=== PATIENT | male | born 1945 | race Caucasian/White ===

== ENCOUNTER 2018-03-19 17:17 | Inpatient (IN) | payer MEDICARE, MEDICAID ==
[2018-03-19 17:24] VITALS: BMI 31.0
[2018-03-19 19:40] LABS: BASO # 0.1 K/uL (0.0-0.2); BASO % 0.6 % (0.0-2.0); EOS # 0.4 K/uL (0.0-0.7); EOS % 3.4 % (0.0-4.0); HEMOGLOBIN 14.8 g/dL (12.0-18.0); LYMPH # 1.4 K/uL (1.0-4.3); LYMPH % 12.8 % (20.0-40.0); MEAN CELL VOLUME 80.1 fL (80.0-94.0); MEAN CORPUSCULAR HEMOGLOBIN 26.6 pg (27.0-31.0); MEAN CORPUSCULAR HGB CONC 33.2 g/dL (33.0-37.0); MEAN PLATELET VOLUME 9.5 fL (7.2-11.7); MONO # 0.8 K/uL (0.0-0.8); MONO % 7.1 % (0.0-10.0); NEUT # 8.5 K/uL (1.8-7.0); NEUT % 76.1 % (50.0-75.0); NRBC % 0.2 % (0.0-2.0); RBC 5.55 Mil/uL (4.40-5.90); RED CELL DISTRIBUTION WIDTH 17.1 % (11.5-14.5); WHITE BLOOD COUNT 11.2 K/uL (4.8-10.8)
--- NOTE | 2018-03-19 19:50 | C.PDOC ---
History Of Present Illness 72 y/o male presents to ED for complaints of dysuria and abdominal suprapubic pain associated with bodyaches and generalized weakness. PAtient states he cannot pass urine. Denies any other physical complaints. Time Seen by Provider: 03/19/18 19:27 Chief Complaint (Nursing): Weakness/Neurological Deficit History Per: Patient History/Exam Limitations: no limitations Onset/Duration Of Symptoms: Hrs Current Symptoms Are (Timing): Still Present Associated Symptoms Preceding Syncopal Episode: No Predromal Symptoms (Sudden Onset) Seizure Or Post-ictal Symptoms: None Fall Associated With With Symptoms: No - Symptoms Of CVA Recent Aspirin Use: Unknown Current Coumadin Use?: Unknown Recent Head Trauma: No Past Medical History Reviewed: Historical Data, Nursing Documentation, Vital Signs Vital Signs: Last Vital Signs Temp Pulse 55 L 03/19/18 20:34 Resp 12 03/19/18 20:34 BP 118/72 03/19/18 20:34 Pulse Ox 98 03/19/18 20:34 - Medical History PMH: Atrial Fibrillation, HTN Family History: States: No Known Family Hx - Social History Hx Alcohol Use: No Hx Substance Use: No - Immunization History Hx Tetanus Toxoid Vaccination: No Hx Influenza Vaccination: No Hx Pneumococcal Vaccination: No Review Of Systems Constitutional: Negative for: Fever, Chills Gastrointestinal: Positive for: Abdominal Pain (suprapubic ). Negative for: Nausea, Vomiting, Diarrhea Genitourinary: Positive for: Dysuria Skin: Negative for: Rash Neurological: Negative for: Weakness, Numbness Physical Exam - Physical Exam Appears: Well, Non-toxic, No Acute Distress Skin: Normal Color, Warm, Dry Head: Atraumatic, Normacephalic Eye(s): bilateral: Normal Inspection, PERRL, EOMI Oral Mucosa: Moist Neck: Supple Cardiovascular: Rhythm Regular Respiratory: Normal Breath Sounds, No Decreased Breath Sounds, No Rales, No Rhonchi, No Wheezing Gastrointestinal/Abdominal: Soft, Tenderness (Suprapubic consistent with bladder ), Distention, No Guarding, No Rebound, Other (Obese) Extremity: Normal ROM, No Pedal Edema, Other (Right leg shorter than left leg ) Extremity: Bilateral: Atraumatic, Normal Color And Temperature, Normal ROM Neurological/Psych: Oriented x3, Normal Speech Gait: Steady ED Course And Treatment - Laboratory Results Result Diagrams: 03/19/18 19:37 03/19/18 19:37 Lab Interpretation: Abnormal (+ mild leukocytosis, UA neg, trop neg.) ECG: Interpreted By Me ECG Rhythm: Atrial Fibrillation ECG Interpretation: Abnormal Rate From EC O2 Sat by Pulse Oximetry: 99 (RA) Pulse Ox Interpretation: Abnormal (changed c/w prior Nuclear Stress Test with Dr. Navarro.) - Radiology CXR: Interpreted by Me CXR Interpretation: Yes: No Acute Disease, Cardiomegaly Progress Note: siegel cath, 1700 cc. lovenox 90 mg SQ for new AF. no abx for mild leukocytosis and no source. Reevaluation Time: 21:15 Reassessment Condition: Improved - Physician Consult Information Outcome Of Conversation: 2100: d/w Dr. Hernandez and Medicine john Aldana to admit. Medical Decision Making Medical Decision Making: Administered Toradol. Ordered EKG, blood work, CXR, and urinalysis. Disposition Doctor Will See Patient In The: Hospital Counseled Patient/Family Regarding: Studies Performed, Diagnosis - Disposition Disposition: HOSPITALIZED Disposition Time: 21:15 Condition: GOOD Forms: [employer] (German) - Clinical Impression Clinical Impression: New onset atrial fibrillation, Urinary retention - Scribe Statement The provider has reviewed the documentation as recorded by the Scribe Yahir Malik All medical record entries made by the Scribe were at my direction and personally dictated by me. I have reviewed the chart and agree that the record accurately reflects my personal performance of the history, physical exam, medical decision making, and the department course for this patient. I have also personally directed, reviewed, and agree with the discharge instructions and disposition.
[2018-03-19 20:01] LABS: ALB/GLOB RATIO 1.3 (1.0-2.1); ALBUMIN 4.5 g/dL (3.5-5.0)
[2018-03-19 20:02] LABS: SPERM URINE RARE /hpf; URINE BILIRUBIN NEGATIVE (NEGATIVE); URINE BLOOD NEGATIVE (NEGATIVE); URINE CLARITY Clear (Clear); URINE COLOR Yellow (YELLOW); URINE GLUCOSE (UA) 3+ mg/dL (Normal); URINE LEUKOCYTE ESTERASE NEG Leu/uL (Negative); URINE PROTEIN NEGATIVE (NEGATIVE); URINE UROBILINOGEN NORMAL mg/dL (0.2-1.0)
[2018-03-19 20:16] LABS: TROPONIN I 0.041 ng/mL (0.00-0.120)
[2018-03-19] MEDS ORDERED: Enoxaparin 40 mg Syringe SC STA (21:11)
--- NOTE | 2018-03-19 21:13 | CP.PCM.HP ---
History of Present Illness - History of Present Illness History of Present Illness: Medicine Note for Dr. Hernandez's Service CC: Can't urinate, lower abdominal pain HPI: This is a 72 year old male with PMHx of Hypertension, Insulin Dependent Type 2 DM, Atrial Fibrillation on AC, and Hypothyroidism, who is presenting with lower abdominal pain and urinary retention x 1 day. Patient reports the past few weeks he has noted that he is unable to void fully, only small volumes at a time, urinary dribble and nocturia. This morning he woke up and was able to void as he usually does. He noticed throughout the day that he started to have lower abdominal distention and pain, especially when he pushed above his groin. He went to scheduled, routine appointment with Dr. Hernandez, who instructed the patient to come in. He admitted to suprapubic abdominal pain and inability to void. Patient ambulates with wheelchair and walker due to recent left hip surgery (11/2017). Denied any associated fever, chills, headache, chest pain, n/v /d/c, or dysuria, hematuria, penile discharge. PMHx: Hypertension, Insulin Dependent Type 2 DM, Atrial Fibrillation on AC, and Hypothyroidism, PSHx: Bilateral hip surgery, right ankle surgery Meds: Patient is unaware of home medications, will list after calling pharmacy All: NKDA SHx: Denied any tobacco or illicit drug use, admits to excessive alcohol use in the past but quit 12 years ago FHx: Unremarkable for cardiac, CVAs, or malignancies PMD: David Pharmacy: [facility] [phone] Present on Admission - Present on Admission Any Indicators Present on Admission: No Past Patient History - Past Social History Smoking Status: Never Smoked - CARDIAC Hx Atrial Fibrillation: Yes Hx Hypertension: Yes - ENDOCRINE/METABOLIC Hx Endocrine Disorders: Yes Hx Diabetes Mellitus Type 2: Yes - PSYCHIATRIC Hx Substance Use: No - SURGICAL HISTORY Hx Surgeries: Yes Hx Orthopedic Surgery: Yes (R hip, left ankle) Meds Allergies/Adverse Reactions: Allergies Allergy/AdvReac Type Severity Reaction Status Date / Time No Known Allergies Allergy Verified 03/19/18 17:23 Physical Exam - Constitutional Appears: No Acute Distress - Head Exam Head Exam: NORMAL INSPECTION, NORMOCEPHALIC - Eye Exam Eye Exam: EOMI, Normal appearance, PERRL. absent: Nystagmus, Scleral icterus Pupil Exam: NORMAL ACCOMODATION - ENT Exam ENT Exam: Mucous Membranes Moist - Respiratory Exam Respiratory Exam: Clear to Auscultation Bilateral, NORMAL BREATHING PATTERN. absent: Decreased Breath Sounds, Rales, Rhonchi, Wheezes - Cardiovascular Exam Cardiovascular Exam: Irregular Rhythm - GI/Abdominal Exam GI & Abdominal Exam: Normal Bowel Sounds, Soft. absent: Distended, Firm, Guarding, Organomegaly, Pulsatile Mass, Tenderness - Rectal Exam Rectal Exam: Deferred - Extremities Exam Extremities exam: Positive for: normal inspection, pedal pulses present. Negative for: pedal edema, tenderness - Back Exam Back exam: NORMAL INSPECTION. absent: CVA tenderness (L), CVA tenderness (R) - Neurological Exam Neurological exam: Alert, CN II-XII Intact, Oriented x3 - Psychiatric Exam Psychiatric exam: Normal Affect, Normal Mood - Skin Skin Exam: Dry, Intact, Normal Color, Warm Results - Vital Signs Recent Vital Signs: Last Vital Signs Temp Pulse 55 L 03/19/18 20:34 Resp 12 03/19/18 20:34 BP 118/72 03/19/18 20:34 Pulse Ox 98 03/19/18 20:34 - Labs Result Diagrams: 03/19/18 19:37 03/19/18 19:37 Labs: Laboratory Results - last 24 hr 03/19/18 03/19/18 03/19/18 17:35 19:37 19:37 WBC 11.2 H RBC 5.55 Hgb 14.8 Hct 44.5 MCV 80.1 MCH 26.6 L MCHC 33.2 RDW 17.1 H Plt Count 193 MPV 9.5 Neut % (Auto) 76.1 H Lymph % (Auto) 12.8 L [place] % (Auto) 7.1 Eos % (Auto) 3.4 Baso % (Auto) 0.6 Neut # (Auto) 8.5 H Lymph # (Auto) 1.4 [place] # (Auto) 0.8 Eos # (Auto) 0.4 Baso # (Auto) 0.1 Sodium 139 Potassium 4.8 Chloride 98 Carbon Dioxide 29 Anion Gap 18 BUN 29 H Creatinine 1.5 Est GFR ( Amer) 56 Est GFR (Non-Af Amer) 46 POC Glucose (mg/dL) 153 H Random Glucose 135 H Calcium 10.0 Total Bilirubin 1.1 AST 37 ALT 24 Alkaline Phosphatase 92 Troponin I 0.0410 NT-Pro-B Natriuret Pep 920 H Total Protein 7.9 Albumin 4.5 Globulin 3.4 Albumin/Globulin Ratio 1.3 Urine Color Urine Clarity Urine pH Ur Specific [place] Urine Protein Urine Glucose (UA) Urine Ketones Urine Blood Urine Nitrate Urine Bilirubin Urine Urobilinogen Ur Leukocyte Esterase Urine WBC (Auto) Urine RBC (Auto) Urine Sperm (Auto) 03/19/18 19:54 WBC RBC Hgb Hct MCV MCH MCHC RDW Plt Count MPV Neut % (Auto) Lymph % (Auto) [place] % (Auto) Eos % (Auto) Baso % (Auto) Neut # (Auto) Lymph # (Auto) [place] # (Auto) Eos # (Auto) Baso # (Auto) Sodium Potassium Chloride Carbon Dioxide Anion Gap BUN Creatinine Est GFR ( Amer) Est GFR (Non-Af Amer) POC Glucose (mg/dL) Random Glucose Calcium Total Bilirubin AST ALT Alkaline Phosphatase Troponin I NT-Pro-B Natriuret Pep Total Protein Albumin Globulin Albumin/Globulin Ratio Urine Color Yellow Urine Clarity Clear Urine pH 5.0 Ur Specific [place] 1.008 Urine Protein Negative Urine Glucose (UA) 3+ H Urine Ketones Negative Urine Blood Negative Urine Nitrate Negative Urine Bilirubin Negative Urine Urobilinogen Normal Ur Leukocyte Esterase Neg Urine WBC (Auto) 1 Urine RBC (Auto) 2 Urine Sperm (Auto) Rare H Assessment & Plan - Assessment and Plan (Free Text) Plan: Urinary Retention - Bourgeois inserted, retained 1700cc - Renal function normal - UA - unremarkable for infection - Started Flomax, will attempt voiding trial tomorrow - F/U renal US Leukocytosis - Afebrile, not tachycardic, slight left shift, UA clean, CXR - no effusions or infiltrates noted - Will continue to monitor - F/U UC Hx Atrial Fibrillation - EKG: atrial fibrillation @ 76 BPM - Negative MICK, elevated BNP 920 - Lovenox SC x 1 dose - Will call pharmacy for full medication list and resume medications - F/U ECHO Hx Hypothyroidism - Will call pharmacy for full medication list and resume medications Hx Insulin Dependent Type 2 DM - Accuchecks - HGA1C 8.8 - ISS- medium - Will call pharmacy for full medication list and resume medications Hx HTN - Normotensive on admission - HHD, 2gram salt, carb consistent diet - Will call pharmacy for full medication list and resume medications Prophylactic Measures - GI PPX: Pepcid - DVT PPX: SCDs, Lovenox 90 Q12 - PT/ OT - HHD, 2gram salt, carb consistent diet Disposition: Will try voiding trial tomorrow. Will need to call pharmacy and resume home medications. We will print out a copy of the list of medications to provide for patient to keep. [facility] [phone] Hernandez, Gerri Chaudhary DO, PGY2
[2018-03-19] MEDS ORDERED: Enoxaparin 100 mg Syringe SC STA (21:21)
[2018-03-19] MEDS ORDERED: Enoxaparin 30 mg Syringe ONE (21:21)
[2018-03-19] MEDS ORDERED: Enoxaparin 60 mg Syringe ONE (21:22)
[2018-03-19] MEDS ORDERED: Dextrose 50% SYRINGE Inj (50 ml) IV PRN (23:07)
[2018-03-19] MEDS ORDERED: Glucagon Recombinant 1 mg Inj IM PRN (23:07)
[2018-03-20 07:40] LABS: BASO # 0.1 K/uL (0.0-0.2); BASO % 0.7 % (0.0-2.0); EOS # 0.6 K/uL (0.0-0.7); EOS % 7.6 % (0.0-4.0); HEMOGLOBIN 13.7 g/dL (12.0-18.0); LYMPH # 1.4 K/uL (1.0-4.3); LYMPH % 18.5 % (20.0-40.0); MEAN CELL VOLUME 79.8 fL (80.0-94.0); MEAN CORPUSCULAR HGB CONC 33.8 g/dL (33.0-37.0); MEAN PLATELET VOLUME 8.9 fL (7.2-11.7); MONO # 0.6 K/uL (0.0-0.8); MONO % 8.4 % (0.0-10.0); NEUT # 4.9 K/uL (1.8-7.0); NEUT % 64.8 % (50.0-75.0); NRBC % 0.1 % (0.0-2.0); RBC 5.08 Mil/uL (4.40-5.90); RED CELL DISTRIBUTION WIDTH 17.5 % (11.5-14.5); WHITE BLOOD COUNT 7.6 K/uL (4.8-10.8)
[2018-03-20 07:50] LABS: ALBUMIN 3.5 g/dL (3.5-5.0); BLOOD UREA NITROGEN 26 mg/dL (9-20); CALCIUM 9.5 mg/dl (8.6-10.4); GFR AFRICAN-AMERICAN > 60; GFR NON-AFRICAN AMERICAN 50
[2018-03-20 07:51] LABS: ALB/GLOB RATIO 1.2 (1.0-2.1); ALT/SGPT 30 U/L (21-72); AST/SGOT 23 U/L (17-59)
[2018-03-20] MEDS: (Novolin R) Insulin Human Regular 100 units/ml vial SC SCH ×4 (08:19→22:31)
--- NOTE | 2018-03-20 08:46 | RAD ---
Date of service: 03/19/2018 PROCEDURE: CHEST RADIOGRAPH, 1 VIEW HISTORY: SOB COMPARISON: Chest radiograph 02/11/2011. FINDINGS: LUNGS: No acute pulmonary disease appreciated bilaterally. PLEURA: No pneumothorax or pleural fluid seen. CARDIOVASCULAR: Stable cardiomegaly. No pulmonary vascular congestion. OSSEOUS STRUCTURES: No significant abnormalities. VISUALIZED UPPER ABDOMEN: Normal. OTHER FINDINGS: None. IMPRESSION: Stable cardiomegaly. No interval acute cardiopulmonary disease appreciated.
[2018-03-20] MEDS ORDERED: Enoxaparin 100 mg Syringe SC SCH (10:00)
--- NOTE | 2018-03-20 10:20 | CP.PCM.PN ---
Subjective - Date & Time of Evaluation Date of Evaluation: 03/20/18 Time of Evaluation: 07:40 - Subjective Subjective: PGY [address] Hernandez. Patient seen and examined at bedside. Patient had no acute events overnight. Patient states he feels fine and denies chest pain, difficulty breathing, constipation, diarrhea, nausea, vomiting. Patient has urinary siegel inserted at time, with 500 cc urine at 7am. Patient pharmacy called and confirmed medications. Objective - Vital Signs/Intake and Output Vital Signs (last 24 hours): Temp Pulse Resp BP Pulse Ox 97.9 F 64 20 146/85 96 03/20/18 07:00 03/20/18 07:48 03/20/18 07:00 03/20/18 07:00 03/20/18 08:00 Intake and Output: 03/20/18 03/20/18 06:59 18:59 Intake Total 240 Output Total 500 Balance -260 - Medications Medications: Current Medications Acetaminophen (Tylenol 325mg Tab) 650 mg PO Q6 PRN PRN Reason: Pain, Mild (1-3) Aspirin (Aspirin Chewable) 81 mg PO DAILY CHERYL Dextrose (Dextrose 50% Inj) 0 ml IV STAT PRN; Protocol PRN Reason: Hypoglycemia Protocol Dextrose (Glutose 15) 0 gm PO ONCE PRN; Protocol PRN Reason: Hypoglycemia Protocol Famotidine (Pepcid) 20 mg PO BID CHERYL Glucagon (Glucagen Diagnostic Kit) 0 mg IM STAT PRN; Protocol PRN Reason: Hypoglycemia Protocol Heparin Sodium (Porcine) (Heparin) 5,000 units SC Q12 CHERYL Dextrose (Dextrose 5% In Water 1000 Ml) 1,000 mls @ 0 mls/hr IV .Q0M PRN; Protocol; Per Protocol PRN Reason: Hypoglycemia Protocol Insulin Human Regular (Novolin R) 0 unit SC ACHS CHERYL PRN Reason: Protocol Last Admin: 03/20/18 08:19 Dose: Not Given Tchzc-9-Vhhy Ethyl Esters (Lovaza) 1 gm PO BID CHERYL Tamsulosin HCl (Flomax) 0.4 mg PO DAILY CHERYL - Labs Labs: 03/20/18 07:27 03/20/18 07:27 - Constitutional Appears: Well, Non-toxic, No Acute Distress - Head Exam Head Exam: ATRAUMATIC, NORMAL INSPECTION, NORMOCEPHALIC - Eye Exam Eye Exam: EOMI, Normal appearance - ENT Exam ENT Exam: Mucous Membranes Moist - Neck Exam Neck Exam: Normal Inspection - Respiratory Exam Respiratory Exam: Clear to Ausculation Bilateral, NORMAL BREATHING PATTERN. absent: Rales, Rhonchi, Wheezes - Cardiovascular Exam Cardiovascular Exam: +S1, +S2. absent: Irregular Rhythm, Murmur - GI/Abdominal Exam GI & Abdominal Exam: Soft, Normal Bowel Sounds. absent: Distended, Firm, Guarding Additional comments: suprapubic tenderness - Neurological Exam Neurological Exam: Alert, Awake, Oriented x3 - Psychiatric Exam Psychiatric exam: Normal Affect, Normal Mood - Skin Skin Exam: absent: Dry, Intact, Normal Color, Warm Assessment and Plan - Assessment and Plan (Free Text) Assessment: Urinary Retention - unclear etiology - pt remains afebrile, no WBCs, clean urine, CMP WNL - Siegel removed ~ 12pm - Pt still unable to urinate as of 7pm - Siegel re-inserted, urology Dr. Reid consulted - NPO @12 AM for possible cystoscopy - thanks for recs - continue flomax 0.4mg daily - renal US - cysts Hx Atrial Fibrillation - c/w home meds: Eliquis 5mg PO BID (held for yonatan AM due to cystoscopy) & digoxin 0.25mg daily - EKG: atrial fibrillation @ 76 BPM - echo - LV mildly dilated, mild concentric LV, EF 55-60%, moderate aortic regurg, buster regurg trace, aortic root mildy enlarged at 4.8 cm Hx Hypothyroidism - pharmacy has no record of meds Hx Insulin Dependent Type 2 DM - Accuchecks - HGA1C 8.8 - ISS- medium - unable to verify units of patients humalog pen 75/25 Hx HTN - c/w home medications: coreg 3.125 mg BID & furosemide 40mg PO daily Leukocytosis - Resolved - Afebrile, not tachycardic, slight left shift, UA clean, CXR - no effusions or infiltrates noted - Will continue to monitor - F/U UC Prophylactic Measures - GI PPX: Pepcid 20 mg BID - DVT PPX: SCDs, Heparin held for possible cystoscopy tomorrow - PT/ OT - NPO after midnight for possible cystoscopy Disposition: Pt failed voiding trial. Siegel re-inserted. Urology consulted and per recs, keep pt NPO after MN for possible cystoscopy.
--- NOTE | 2018-03-20 10:40 | US ---
Date of service: 03/19/2018 PROCEDURE: Ultrasound of the Kidneys HISTORY: urinary retention COMPARISON: None available. TECHNIQUE: Sonogram of the kidneys. FINDINGS: RIGHT KIDNEY: Measures: 11.3 x 4.3 x 4.3 cm. Upper pole cyst measuring 1.3 x 1.2 x 1.2 cm. Sub centimeter lower pole cysts. Normal in size, contour and echogenicity. No stone, solid mass lesion or hydronephrosis visualized. LEFT KIDNEY: Measures: 10.7 x 5.3 x 4.7 cm. Midpole cyst measuring 0.9 x 1.2 x 1.2 cm. Lower pole cyst measuring 5.2 x 4.8 x 5.3 cm. Normal in size, contour and echogenicity. No stone, solid mass lesion or hydronephrosis visualized. OTHER FINDINGS: Partially imaged hepatic steatosis. IMPRESSION: Bilateral renal cysts, the largest is in the left lower pole and measures up to 5.3 cm. Hepatic steatosis.
[2018-03-20] MEDS: Omega-3-Acid Ethyl Esters 1 GM Cap PO SCH ×2 (11:05→17:22)
--- NOTE | 2018-03-20 11:44 | CARD ---
APPROVED REPORT Date of service: 03/19/2018 EKG Measurement Heart [id number] <Conclusion> Atrial fibrillation Low voltage QRS Inferior infarct, age undetermined Cannot rule out Anterior infarct, age undetermined Abnormal ECG
--- NOTE | 2018-03-20 19:18 | CARD ---
APPROVED REPORT Date of service: 03/20/2018 EXAM: Two-dimensional and M-mode echocardiogram with Doppler and color Doppler. Other Information Quality : GoodRhythm : INDICATION Atrial Fibrillation 2D DIMENSIONS IVSd1.2 (0.7-1.1cm)LVDd5.2 (3.9-5.9cm) PWd1.1 (0.7-1.1cm)LVDs3.8 (2.5-4.0cm) FS (%) 26.1 %LVEF (%)55.0 (>50%) M-Mode DIMENSIONS Left Atrium (MM)4.33 (2.5-4.0cm)IVSd1.16 (0.7-1.1cm) Aortic Root4.81 (2.2-3.7cm)LVDd6.10 (4.0-5.6cm) Aortic Cusp Exc.3.02 (1.5-2.0cm)PWd1.19 (0.7-1.1cm) FS (%) 36 %LVDs3.90 (2.0-3.8cm) LVEF (%)65 (>50%) Aortic Valve AI P 1/2 [id number] Mitral Valve MV E Eynjobvh846.3cm/sE/A ratio0.0 TDI E/Lateral E'0.0E/Medial E'0.0 Tricuspid Valve TR Peak [id number]/sTR Peak Gr.[id number] LEFT VENTRICLE The Left Ventricle is mildly dilated. There is mild concentric left ventricular hypertrophy. Left ventricle systolic function is normal. The Ejection Fraction is 55-60%. There is hypokinesis in the basal anteroseptal wall. A fib with diastolic dysfunction by tissue Doppler. There is no ventricular septal defect visualized. RIGHT VENTRICLE The right ventricle is normal size. The right ventricular systolic function is normal. ATRIA The left atrium is mildly dilated. The right atrium size is normal. AORTIC VALVE The aortic valve is mildly sclerotic. The aortic valve is tri-cuspid. There is moderate aortic regurgitation. There is no aortic valvular stenosis. MITRAL VALVE Mitral annular calcification is mild. There is no evidence of mitral valve prolapse. Mitral regurgitation is trace. TRICUSPID VALVE The tricuspid valve is normal in structure. There is trace tricuspid regurgitation. Right ventricular systolic pressure is estimated at less than 30 mmHg. There is no pulmonary hypertension. PULMONIC VALVE The pulmonic valve is not well visualized. There is trace pulmonic valvular regurgitation. GREAT VESSELS The aortic root is mildly enlarged.4.8 cm The ascending aorta is Mildly dilated. 4.1 cm The IVC is normal in size and collapses >50% with inspiration. PERICARDIAL EFFUSION There is no pericardial effusion. <Conclusion> The Left Ventricle is mildly dilated. There is mild concentric left ventricular hypertrophy. Left ventricle systolic function is normal. The Ejection Fraction is 55-60%. There is hypokinesis in the basal anteroseptal wall. There is moderate aortic regurgitation. The aortic root is mildly enlarged.4.8 cm Mitral regurgitation is trace.
--- NOTE | 2018-03-21 06:44 | CP.PCM.PN ---
Subjective - Date & Time of Evaluation Date of Evaluation: 03/21/18 Time of Evaluation: 07:45 - Subjective Subjective: PGY [address] Hernandez. Patient seen and examined at bedside. Patient had no acute events overnight. Patient states he feels fine and denies chest pain, difficulty breathing, constipation, diarrhea, nausea, vomiting. Patient has urinary siegel inserted at time, with 2000CC overnight. Patient NPO for possible cytoscopy. Objective - Vital Signs/Intake and Output Vital Signs (last 24 hours): Temp Pulse Resp BP Pulse Ox 97.5 F L 63 20 137/74 95 03/21/18 04:28 03/21/18 04:28 03/21/18 04:28 03/21/18 04:28 03/21/18 04:28 Intake and Output: 03/20/18 03/21/18 18:59 06:59 Intake Total 475 Output Total 2800 Balance -2325 - Medications Medications: Current Medications Acetaminophen (Tylenol 325mg Tab) 650 mg PO Q6 PRN PRN Reason: Pain, Mild (1-3) Apixaban (Eliquis) 5 mg PO BID [facility] Aspirin (Aspirin Chewable) 81 mg PO DAILY [facility] Last Admin: 03/20/18 11:05 Dose: 81 mg Carvedilol (Coreg) 3.125 mg PO BID [facility] [place] Last Admin: 03/20/18 20:17 Dose: 3.125 mg Dextrose (Dextrose 50% Inj) 0 ml IV STAT PRN; Protocol PRN Reason: Hypoglycemia Protocol Dextrose (Glutose 15) 0 gm PO ONCE PRN; Protocol PRN Reason: Hypoglycemia Protocol Digoxin (Lanoxin) 0.25 mg PO DAILY@1800 [facility] Famotidine (Pepcid) 20 mg PO BID [facility] [place] Last Admin: 03/20/18 17:22 Dose: 20 mg Furosemide (Lasix) 40 mg PO DAILY [facility] Gabapentin (Neurontin) 300 mg PO TID [facility] [place] Glucagon (Glucagen Diagnostic Kit) 0 mg IM STAT PRN; Protocol PRN Reason: Hypoglycemia Protocol Heparin Sodium (Porcine) (Heparin) 5,000 units SC Q12 CHERYL Dextrose (Dextrose 5% In Water 1000 Ml) 1,000 mls @ 0 mls/hr IV .Q0M PRN; Protocol; Per Protocol PRN Reason: Hypoglycemia Protocol Insulin Human Regular (Novolin R) 0 unit SC ACHS [facility] [place] PRN Reason: Protocol Last Admin: 03/20/18 22:31 Dose: Not Given Crtdt-7-Nugz Ethyl Esters (Lovaza) 1 gm PO BID [facility] [place] Last Admin: 03/20/18 17:22 Dose: 1 gm Rosuvastatin Calcium (Crestor) 5 mg PO HS [facility] [place] Last Admin: 03/20/18 21:38 Dose: 5 mg Tamsulosin HCl (Flomax) 0.4 mg PO DAILY [facility] [place] Last Admin: 03/20/18 17:22 Dose: 0.4 mg Tramadol HCl (Ultram) 50 mg PO QID PRN PRN Reason: Pain, moderate (4-7) - Labs Labs: 03/20/18 07:27 03/20/18 07:27 - Constitutional Appears: Well, Non-toxic, No Acute Distress - Head Exam Head Exam: ATRAUMATIC, NORMAL INSPECTION, NORMOCEPHALIC - Eye Exam Eye Exam: EOMI, Normal appearance - ENT Exam ENT Exam: Mucous Membranes Moist, Normal Exam - Neck Exam Neck Exam: Full ROM - Respiratory Exam Respiratory Exam: Clear to Ausculation Bilateral, NORMAL BREATHING PATTERN. absent: Rales, Rhonchi, Wheezes - Cardiovascular Exam Cardiovascular Exam: +S1, +S2. absent: Irregular Rhythm, Murmur - GI/Abdominal Exam GI & Abdominal Exam: Soft, Normal Bowel Sounds. absent: Firm, Guarding, Rigid - Exam Additional comments: Urinary siegel in place - Extremities Exam Extremities Exam: Full ROM. absent: Calf Tenderness, Pedal Edema Additional comments: Patient has small pressure ulcer on R heal ( <1cm in diameter) - Neurological Exam Neurological Exam: Alert, Awake, Oriented x3 - Psychiatric Exam Psychiatric exam: Normal Affect, Normal Mood - Skin Skin Exam: Dry, Intact, Normal Color, Warm Assessment and Plan - Assessment and Plan (Free Text) Assessment: Urinary Retention - unclear etiology - pt remains afebrile, no WBCs, clean urine, CMP WNL - Siegel removed 03/20 (around noon), but patient was unable to void, so re- inserted ~6pm (03/20) - Clamp siegel Q2H for bladder training -urology Dr. Reid consulted - possible evening cystoscopy tomorrow 03/22 -possible D/C siegel in AM - continue flomax 0.4mg daily - renal US - cysts Heal Ulcer - healing, apply off loading boots Hx Atrial Fibrillation - c/w home meds: Eliquis 5mg PO BID & digoxin 0.25mg daily - EKG: atrial fibrillation @ 76 BPM - echo - LV mildly dilated, mild concentric LV, EF 55-60%, moderate aortic regurg, buster regurg trace, aortic root mildy enlarged at 4.8 cm Hx Hypothyroidism - pharmacy has no record of meds - F/u TSH/ free T4 Hx Insulin Dependent Type 2 DM - Accuchecks - HGA1C 8.8 - Levemir 40 units BID (started on 03/21) - ISS- medium (for coverage) - unable to verify units of patients humalog pen 75/25 so not resumed Hx HTN - c/w home medications: coreg 3.125 mg BID & furosemide 40mg PO daily Leukocytosis - Resolved - Afebrile, not tachycardic, slight left shift, UA clean, CXR - no effusions or infiltrates noted - Will continue to monitor - U/C no growth Prophylactic Measures - GI PPX: Pepcid 20 mg BID - DVT PPX: SCDs, eliquis 5mg BID - PT/ OT - Regular Diet Disposition: Pt failed voiding trial 03/20. Currently Siegel in place w/ 2 hour clamping interval to bladder train. Possible cystopscopy tomorrow. Will re- assess tomorrow. Assessment & Plan discussed with Dr. Hernandez.
[2018-03-21] MEDS: (Novolin R) Insulin Human Regular 100 units/ml vial SC SCH ×4 (07:30→21:06)
[2018-03-21 08:16] LABS: BASO # 0.1 K/uL (0.0-0.2); BASO % 0.9 % (0.0-2.0); EOS # 0.5 K/uL (0.0-0.7); EOS % 7.6 % (0.0-4.0); HEMOGLOBIN 13.2 g/dL (12.0-18.0); LYMPH # 1.1 K/uL (1.0-4.3); LYMPH % 15.4 % (20.0-40.0); MEAN CELL VOLUME 79.8 fL (80.0-94.0); MEAN CORPUSCULAR HGB CONC 33.8 g/dL (33.0-37.0); MONO # 0.6 K/uL (0.0-0.8); MONO % 8.2 % (0.0-10.0); NEUT # 4.7 K/uL (1.8-7.0); NEUT % 67.9 % (50.0-75.0); NRBC % 0.1 % (0.0-2.0); RBC 4.88 Mil/uL (4.40-5.90); WHITE BLOOD COUNT 6.9 K/uL (4.8-10.8)
[2018-03-21 08:27] LABS: ALB/GLOB RATIO 1.1 (1.0-2.1); ALBUMIN 3.4 g/dL (3.5-5.0); ALT/SGPT 21 U/L (21-72); AST/SGOT 19 U/L (17-59); BLOOD UREA NITROGEN 21 mg/dL (9-20); CALCIUM 8.9 mg/dl (8.6-10.4); GFR AFRICAN-AMERICAN > 60; GFR NON-AFRICAN AMERICAN 60
[2018-03-21 09:55] LABS: INR 1.3; PROTHROMBIN TIME 14.6 SECONDS (9.7-12.2)
[2018-03-21] MEDS: Omega-3-Acid Ethyl Esters 1 GM Cap PO SCH ×2 (10:05→21:06)
[2018-03-21] MEDS ORDERED: (Novolin R) Insulin Human Regular 100 units/ml vial SC ONE (12:00)
[2018-03-21] MEDS: Insulin Detemir 100 units/ml Vial (Levemir) SC SCH (17:39)
[2018-03-21] MEDS: Digoxin 250 mcg (0.25 mg) Tab PO SCH (17:39)
--- NOTE | 2018-03-22 07:01 | CP.PCM.PN ---
Subjective - Date & Time of Evaluation Date of Evaluation: 03/22/18 Time of Evaluation: 07:20 - Subjective Subjective: PGY [address] Hernandez. Patient seen and examined at bedside. Patient had no acute events overnight. Patient states he feels fine and denies chest pain, difficulty breathing, constipation, diarrhea, nausea, vomiting. Patient has urinary siegel inserted w/ bladder training overnight. Cystoscopy today per Dr. Reid Objective - Vital Signs/Intake and Output Vital Signs (last 24 hours): Temp Pulse Resp BP Pulse Ox 98.6 F 56 L 20 155/75 H 96 03/22/18 04:00 03/22/18 04:00 03/22/18 04:00 03/22/18 04:00 03/22/18 04:00 Intake and Output: 03/22/18 03/22/18 06:59 18:59 Output Total 950 Balance -950 - Medications Medications: Current Medications Acetaminophen (Tylenol 325mg Tab) 650 mg PO Q6 PRN PRN Reason: Pain, Mild (1-3) Apixaban (Eliquis) 5 mg PO BID [facility] Last Admin: 03/21/18 18:58 Dose: 5 mg Aspirin (Aspirin Chewable) 81 mg PO DAILY [facility] Last Admin: 03/21/18 10:16 Dose: Not Given Carvedilol (Coreg) 3.125 mg PO BID [facility] Last Admin: 03/21/18 17:39 Dose: 3.125 mg Dextrose (Dextrose 50% Inj) 0 ml IV STAT PRN; Protocol PRN Reason: Hypoglycemia Protocol Dextrose (Glutose 15) 0 gm PO ONCE PRN; Protocol PRN Reason: Hypoglycemia Protocol Digoxin (Lanoxin) 0.25 mg PO DAILY@1800 [facility] Last Admin: 03/21/18 17:39 Dose: 0.25 mg Famotidine (Pepcid) 20 mg PO BID [facility] Last Admin: 03/21/18 17:39 Dose: 20 mg Furosemide (Lasix) 40 mg PO DAILY [facility] Last Admin: 03/21/18 10:05 Dose: 40 mg Gabapentin (Neurontin) 300 mg PO TID [facility] Last Admin: 03/21/18 17:39 Dose: 300 mg Glucagon (Glucagen Diagnostic Kit) 0 mg IM STAT PRN; Protocol PRN Reason: Hypoglycemia Protocol Heparin Sodium (Porcine) (Heparin) 5,000 units SC Q12 [facility] Dextrose (Dextrose 5% In Water 1000 Ml) 1,000 mls @ 0 mls/hr IV .Q0M PRN; Protocol; Per Protocol PRN Reason: Hypoglycemia Protocol Insulin Detemir (Levemir) 40 unit SC BID [facility] Last Admin: 03/21/18 17:39 Dose: 40 units Insulin Human Regular (Novolin R) 0 unit SC ACHS [facility] PRN Reason: Protocol Last Admin: 03/21/18 21:06 Dose: 3 u Hfraw-3-Eqhr Ethyl Esters (Lovaza) 1 gm PO BID [facility] Last Admin: 03/21/18 21:06 Dose: 1 gm Rosuvastatin Calcium (Crestor) 5 mg PO HS [facility] Last Admin: 03/21/18 21:05 Dose: 5 mg Tamsulosin HCl (Flomax) 0.4 mg PO DAILY [facility] Last Admin: 03/21/18 10:18 Dose: 0.4 mg Tramadol HCl (Ultram) 50 mg PO QID PRN PRN Reason: Pain, moderate (4-7) - Labs Labs: 03/21/18 08:05 03/21/18 08:05 PT 14.6 SECONDS (9.7-12.2) H 03/21/18 09:43 INR 1.3 03/21/18 09:43 APTT 31 SECONDS (21-34) 03/21/18 09:43 - Constitutional Appears: Well, Non-toxic, No Acute Distress - Head Exam Head Exam: ATRAUMATIC, NORMAL INSPECTION, NORMOCEPHALIC - Eye Exam Eye Exam: EOMI, Normal appearance Pupil Exam: NORMAL ACCOMODATION - ENT Exam ENT Exam: Mucous Membranes Moist - Respiratory Exam Respiratory Exam: Clear to Ausculation Bilateral, NORMAL BREATHING PATTERN. absent: Rales, Rhonchi, Wheezes - Cardiovascular Exam Cardiovascular Exam: Irregular Rhythm, +S1, +S2. absent: Tachycardia - GI/Abdominal Exam GI & Abdominal Exam: Soft, Normal Bowel Sounds. absent: Firm, Guarding, Rigid - Exam Additional comments: Siegel in place - Extremities Exam Extremities Exam: Full ROM, Normal Inspection. absent: Calf Tenderness, Pedal Edema Additional comments: Right posterior 1cm diameter - Neurological Exam Neurological Exam: Alert, Awake, Oriented x3 - Psychiatric Exam Psychiatric exam: Normal Affect, Normal Mood - Skin Skin Exam: Dry, Intact, Normal Color, Warm Assessment and Plan - Assessment and Plan (Free Text) Assessment: Urinary Retention - unclear etiology - Cystoscopy 03/22 -Per Dr. Reid possiblely clear from urology on 03/22 if pass voiding trial - follow up w/ Dr. Rueda - pt remains afebrile, no WBCs, clean urine, CMP WNL - Siegel removed 03/20 (around noon), but patient was unable to void, so re- inserted ~6pm (03/20) - continue flomax 0.4mg daily - renal US - cysts Heal Ulcer - healing, apply off loading boots Hx Atrial Fibrillation - c/w home meds: Eliquis 5mg PO BID & digoxin 0.25mg daily - EKG: atrial fibrillation @ 76 BPM - echo - LV mildly dilated, mild concentric LV, EF 55-60%, moderate aortic regurg, buster regurg trace, aortic root mildy enlarged at 4.8 cm Hx Hypothyroidism - pharmacy has no record of meds - TSH 5.36, Free T4 1.64 Hx Insulin Dependent Type 2 DM - Accuchecks - HGA1C 8.8 - Levemir 40 units BID (started on 03/21) - ISS- medium (for coverage) - unable to verify units of patients humalog pen so not resumed Hx HTN - c/w home medications: coreg 3.125 mg BID & furosemide 40mg PO daily Leukocytosis - Resolved - Afebrile, not tachycardic, slight left shift, UA clean, CXR - no effusions or infiltrates noted - Will continue to monitor - U/C no growth Prophylactic Measures - GI PPX: Pepcid 20 mg BID - DVT PPX: SCDs, eliquis 5mg BID - PT/ OT - Regular Diet Disposition: Pt failed voiding trial 03/20. Patient had cathetor re-inserted and had cystoscopy on 03/22. Possible voiding trial on 03/23 and if successful, D/C to home. F/u with Dr. Franklin rea. Co-reg held due to bradycardia, restart all meds on discharge. Assessment & Plan discussed with Dr. Hernandez.
[2018-03-22] MEDS: (Novolin R) Insulin Human Regular 100 units/ml vial SC SCH ×4 (08:15→22:00)
[2018-03-22 08:39] LABS: BASO # 0.1 K/uL (0.0-0.2); BASO % 0.9 % (0.0-2.0); EOS # 0.5 K/uL (0.0-0.7); EOS % 7.2 % (0.0-4.0); LYMPH # 1.2 K/uL (1.0-4.3); MEAN CELL VOLUME 79.7 fL (80.0-94.0); MEAN CORPUSCULAR HEMOGLOBIN 27.5 pg (27.0-31.0); MEAN CORPUSCULAR HGB CONC 34.6 g/dL (33.0-37.0); MEAN PLATELET VOLUME 9.2 fL (7.2-11.7); MONO # 0.6 K/uL (0.0-0.8); NEUT # 4.6 K/uL (1.8-7.0); NEUT % 65.9 % (50.0-75.0); NRBC % 0.1 % (0.0-2.0); RBC 5.08 Mil/uL (4.40-5.90); RED CELL DISTRIBUTION WIDTH 17.5 % (11.5-14.5)
[2018-03-22 08:56] LABS: ALB/GLOB RATIO 1.3 (1.0-2.1); ALBUMIN 3.8 g/dL (3.5-5.0); ALT/SGPT 24 U/L (21-72); AST/SGOT 18 U/L (17-59); BLOOD UREA NITROGEN 23 mg/dL (9-20); CALCIUM 8.9 mg/dl (8.6-10.4); GFR AFRICAN-AMERICAN > 60; GFR NON-AFRICAN AMERICAN 50
[2018-03-22] MEDS: Insulin Detemir 100 units/ml Vial (Levemir) SC SCH ×2 (09:48→18:00)
[2018-03-22] MEDS: Omega-3-Acid Ethyl Esters 1 GM Cap PO SCH ×2 (09:49→20:35)
--- NOTE | 2018-03-22 09:56 | PCM.URO ---
Urology Progress Note - Subjective Abdominal Pain: Yes (PT FOR CYSTOSCOPY 03/22) - Objective Lab Results Last 24 Hours: Laboratory Results - last 24 hr 03/21/18 03/21/18 03/21/18 09:43 11:19 16:02 WBC RBC Hgb Hct MCV MCH MCHC RDW Plt Count MPV Neut % (Auto) Lymph % (Auto) [place] % (Auto) Eos % (Auto) Baso % (Auto) Neut # (Auto) Lymph # (Auto) [place] # (Auto) Eos # (Auto) Baso # (Auto) PT 14.6 H INR 1.3 APTT 31 Sodium Potassium Chloride Carbon Dioxide Anion Gap BUN Creatinine Est GFR ( Amer) Est GFR (Non-Af Amer) POC Glucose (mg/dL) 236 H 235 H Random Glucose Calcium Phosphorus Magnesium Total Bilirubin AST ALT Alkaline Phosphatase Total Protein Albumin Globulin Albumin/Globulin Ratio Free T4 TSH 3rd Generation 03/21/18 03/22/18 03/22/18 20:45 06:40 08:33 WBC 7.0 RBC 5.08 Hgb 14.0 Hct 40.5 MCV 79.7 L MCH 27.5 MCHC 34.6 RDW 17.5 H Plt Count 160 MPV 9.2 Neut % (Auto) 65.9 Lymph % (Auto) 17.0 L [place] % (Auto) 9.0 Eos % (Auto) 7.2 H Baso % (Auto) 0.9 Neut # (Auto) 4.6 Lymph # (Auto) 1.2 [place] # (Auto) 0.6 Eos # (Auto) 0.5 Baso # (Auto) 0.1 PT INR APTT Sodium Potassium Chloride Carbon Dioxide Anion Gap BUN Creatinine Est GFR ( Amer) Est GFR (Non-Af Amer) POC Glucose (mg/dL) 362 H 191 H Random Glucose Calcium Phosphorus Magnesium Total Bilirubin AST ALT Alkaline Phosphatase Total Protein Albumin Globulin Albumin/Globulin Ratio Free T4 TSH 3rd Generation 03/22/18 03/22/18 08:33 08:33 WBC RBC Hgb Hct MCV MCH MCHC RDW Plt Count MPV Neut % (Auto) Lymph % (Auto) [place] % (Auto) Eos % (Auto) Baso % (Auto) Neut # (Auto) Lymph # (Auto) [place] # (Auto) Eos # (Auto) Baso # (Auto) PT INR APTT Sodium 142 Potassium 3.9 Chloride 100 Carbon Dioxide 32 H Anion Gap 14 BUN 23 H Creatinine 1.4 Est GFR ( Amer) > 60 Est GFR (Non-Af Amer) 50 POC Glucose (mg/dL) Random Glucose 178 H Calcium 8.9 Phosphorus 2.7 Magnesium 2.1 Total Bilirubin 0.8 AST 18 ALT 24 Alkaline Phosphatase 77 Total Protein 6.7 Albumin 3.8 Globulin 2.9 Albumin/Globulin Ratio 1.3 Free T4 1.64 TSH 3rd Generation 5.36 H Intake & Output: Intake & Output 03/21/18 03/22/18 03/22/18 18:59 06:59 18:59 Intake Total 120 Output Total 1999 950 Balance -1880 -950 Intake: Oral 120 Output: Urine 1999 950 Urethral (Bourgeois) 1999 950 Other: # Bowel Movements 1 Vital Signs: Vital Signs - 24 hr 03/21/18 03/21/18 03/21/18 10:00 10:05 15:35 Temperature 97.4 F L Pulse Rate 73 80 Respiratory 20 Rate Blood Pressure 128/81 157/83 H O2 Sat by Pulse 95 Oximetry 03/21/18 03/21/18 03/21/18 16:00 21:29 23:15 Temperature Pulse Rate 73 71 Respiratory Rate Blood Pressure O2 Sat by Pulse 95 Oximetry 03/21/18 03/22/18 03/22/18 23:50 03:06 04:00 Temperature 99.0 F 98.6 F Pulse Rate 73 68 56 L Respiratory 20 20 Rate Blood Pressure 127/72 155/75 H O2 Sat by Pulse 93 L 96 Oximetry 03/22/18 07:15 Temperature 98.8 F Pulse Rate 63 Respiratory 20 Rate Blood Pressure 125/75 O2 Sat by Pulse 94 L Oximetry
[2018-03-22] MEDS ORDERED: Lidocaine 2% Jelly (Uro-Jet) ONE (16:43)
[2018-03-22] MEDS ORDERED: cefTRIAXone IV 1 gm in Dextros 50 ML IVPB ONE ×2 (16:43→17:35)
[2018-03-22] MEDS ORDERED: Iohexol 240 (50 ml) ONE (16:43)
[2018-03-22] MEDS ORDERED: Propofol 10 mg/ml Inj (20 ML) ONE (16:52)
[2018-03-22] MEDS ORDERED: HYDROmorphone 0.5 mg/0.5 ml ISec IVP PRN (17:32)
--- NOTE | 2018-03-22 18:02 | RAD ---
Date of service: 03/22/2018 HISTORY: RETENTION COMPARISON: No prior. FINDINGS: BOWEL: Normal. No obstruction. No free air. BONES: Bilateral hip arthroplasties. OTHER FINDINGS: Inferior vena cava filter. Contrast injected into the urinary bladder with a Bourgeois catheter fills homogeneously. No evidence of vesicoureteral reflux noted on the AP image. IMPRESSION: No active disease.
[2018-03-22] MEDS: Digoxin 250 mcg (0.25 mg) Tab PO SCH (20:26)
[2018-03-22] MEDS: Ciprofloxacin 400mg/200ml D5W 400 MG/200 ML BAG IVPB SCH (20:36)
[2018-03-22 20:37] VITALS: RESP 20
--- NOTE | 2018-03-23 05:06 | CON ---
DATE: 03/22/2018 UROLOGY CONSULTATION REQUESTING PHYSICIAN: Raymond Hernandez MD HISTORY OF PRESENT ILLNESS: The patient was admitted with new-onset atrial fibrillation, also found to be in urinary retention. Urology is consulted regarding the urinary retention. PAST MEDICAL AND SURGICAL HISTORY: See above. UROLOGY HISTORY: As follows: He reports prior to this month that he had no trouble urinating and then he had a decreased force of stream, and then he was having trouble urinating. They inserted a Bourgeois catheter. He felt better immediately. He would like to see if we can get the catheter out as quickly as possible. See below plans. Past medical and surgical as listed. REVIEW OF SYSTEMS: All in the chart. MEDICATIONS: All in the chart. SOCIAL HISTORY: Essentially unremarkable. PHYSICAL EXAMINATION: GENERAL: Well-nourished male in no apparent distress. VITAL SIGNS: Within normal limits. LUNGS: Clear. HEART: Normal S1 and S2. ABDOMEN: Soft and nontender. No flank mass was appreciated. GENITOURINARY: Normal phallus without discharge. No testicular mass. RECTAL: Deferred to cysto, but I will mention now, 30 g prostate, soft and smooth. DIAGNOSES: Urinary retention, voiding dysfunction. ASSESSMENT AND PLAN: In summary, this is a very pleasant gentleman. He is 72 years old with multiple medical histories. He has a poor ejection fraction as noted. His echocardiogram as noted. He is status post bilateral hip replacements. See the pictures. Status post bilateral hip replacements and multiple medical issues. From urology standpoint, again as mentioned see the chart notes in terms of medications he is on several medications including Eliquis which he still actively is taking. The plan is as follows: We discussed various options. The patient wants to try to get the catheter out before he goes home. He said he was in the trouble before. He wants to try his best to get the catheter out as best as possible. I did discuss the outpatient workup as I discussed with the idea of going home with Bourgeois catheter, but the patient really says that he would have a difficult time, so therefore we are going to try to accommodate with this as possible because he is very limited in his ability to take care of this. The plan therefore is as follows: We are going to plan for cystoscopy. We are going to arrange for doing it today. Then, we are going to give him a voiding trial. The patient will advance Flomax. Then further plans will follow. Thank you for the urology consult. The plan is as follows: 1. Cystoscopy. 2. Cystoscopy with retrograde pyelogram. 3. Possible trial of void to follow. Rayray Reid MD
[2018-03-23] MEDS: Ciprofloxacin 400mg/200ml D5W 400 MG/200 ML BAG IVPB SCH ×2 (05:19→17:50)
[2018-03-23] MEDS: (Novolin R) Insulin Human Regular 100 units/ml vial SC SCH ×4 (08:09→21:25)
[2018-03-23 08:18] LABS: BASO # 0.1 K/uL (0.0-0.2); BASO % 0.9 % (0.0-2.0); EOS # 0.6 K/uL (0.0-0.7); EOS % 8.8 % (0.0-4.0); LYMPH # 1.1 K/uL (1.0-4.3); LYMPH % 15.5 % (20.0-40.0); MEAN CELL VOLUME 80.1 fL (80.0-94.0); MEAN CORPUSCULAR HEMOGLOBIN 27.5 pg (27.0-31.0); MEAN CORPUSCULAR HGB CONC 34.4 g/dL (33.0-37.0); MEAN PLATELET VOLUME 9.5 fL (7.2-11.7); MONO # 0.6 K/uL (0.0-0.8); MONO % 8.1 % (0.0-10.0); NEUT # 4.8 K/uL (1.8-7.0); NEUT % 66.7 % (50.0-75.0); NRBC % 0.4 % (0.0-2.0); RBC 5.07 Mil/uL (4.40-5.90); RED CELL DISTRIBUTION WIDTH 17.2 % (11.5-14.5); WHITE BLOOD COUNT 7.3 K/uL (4.8-10.8)
[2018-03-23 08:44] LABS: ALB/GLOB RATIO 1.1 (1.0-2.1); ALBUMIN 3.6 g/dL (3.5-5.0); ALT/SGPT 41 U/L (21-72); AST/SGOT 36 U/L (17-59); BLOOD UREA NITROGEN 21 mg/dL (9-20); CALCIUM 8.7 mg/dl (8.6-10.4); GFR AFRICAN-AMERICAN > 60; GFR NON-AFRICAN AMERICAN 55
[2018-03-23] MEDS: Insulin Detemir 100 units/ml Vial (Levemir) SC SCH ×2 (09:33→17:47)
[2018-03-23] MEDS: Omega-3-Acid Ethyl Esters 1 GM Cap PO SCH ×2 (09:38→17:48)
--- NOTE | 2018-03-23 13:16 | CP.PCM.PN ---
Subjective - Date & Time of Evaluation Date of Evaluation: 03/23/18 Time of Evaluation: 13:16 - Subjective Subjective: PGY-[address] Hernandez's Service Patient seen and examined at [facility]. Per nursing, no acute events occurred overnight. Patient reports an improvement in urination. He still sometimes has a "full" sensation but it has improved. Patient denies any fevers, chills, nausea, vomiting, headaches, syncopal episodes, chest pain, or any other complaints. Objective - Vital Signs/Intake and Output Vital Signs (last 24 hours): Temp Pulse Resp BP Pulse Ox 98.1 F 47 L 20 109/73 97 03/23/18 07:00 03/23/18 08:00 03/23/18 07:00 03/23/18 09:33 03/23/18 07:00 Intake and Output: 03/23/18 03/23/18 06:59 18:59 Intake Total 1000 Output Total 700 Balance 300 - Medications Medications: Current Medications Acetaminophen (Tylenol 325mg Tab) 650 mg PO Q6 PRN PRN Reason: Pain, Mild (1-3) Apixaban (Eliquis) 5 mg PO BID [facility] Last Admin: 03/23/18 09:38 Dose: 5 mg Aspirin (Aspirin Chewable) 81 mg PO DAILY [facility] Last Admin: 03/23/18 09:33 Dose: 81 mg Carvedilol (Coreg) 3.125 mg PO BID [facility] Last Admin: 03/22/18 09:46 Dose: Not Given Dextrose (Dextrose 50% Inj) 0 ml IV STAT PRN; Protocol PRN Reason: Hypoglycemia Protocol Dextrose (Glutose 15) 0 gm PO ONCE PRN; Protocol PRN Reason: Hypoglycemia Protocol Digoxin (Lanoxin) 0.25 mg PO DAILY@1800 [facility] Last Admin: 03/22/18 20:26 Dose: Not Given Famotidine (Pepcid) 20 mg PO BID [facility] Last Admin: 03/23/18 09:38 Dose: 20 mg Furosemide (Lasix) 40 mg PO DAILY [facility] Last Admin: 03/23/18 09:33 Dose: 40 mg Gabapentin (Neurontin) 300 mg PO TID [facility] Last Admin: 03/23/18 09:38 Dose: 300 mg Glucagon (Glucagen Diagnostic Kit) 0 mg IM STAT PRN; Protocol PRN Reason: Hypoglycemia Protocol Heparin Sodium (Porcine) (Heparin) 5,000 units SC Q12 [facility] Ciprofloxacin (Cipro 400mg/200ml Dsw) 400 mg in 200 mls @ 133 mls/hr IVPB Q12H [facility] PRN Reason: Protocol Last Admin: 03/23/18 05:19 Dose: 133 mls/hr Insulin Detemir (Levemir) 40 unit SC BID [facility] Last Admin: 03/23/18 09:33 Dose: 40 units Insulin Human Regular (Novolin R) 0 unit SC ACHS [facility] PRN Reason: Protocol Last Admin: 03/23/18 12:17 Dose: 8 units Llpju-5-Yuix Ethyl Esters (Lovaza) 1 gm PO BID [facility] Last Admin: 03/23/18 09:38 Dose: 1 gm Rosuvastatin Calcium (Crestor) 5 mg PO HS [facility] Last Admin: 03/22/18 21:48 Dose: 5 mg Tamsulosin HCl (Flomax) 0.4 mg PO DAILY [facility] Last Admin: 03/23/18 09:33 Dose: 0.4 mg Tramadol HCl (Ultram) 50 mg PO QID PRN PRN Reason: Pain, moderate (4-7) - Labs Labs: 03/23/18 08:02 03/23/18 08:02 PT 14.6 SECONDS (9.7-12.2) H 03/21/18 09:43 INR 1.3 03/21/18 09:43 APTT 31 SECONDS (21-34) 03/21/18 09:43 - Head Exam Head Exam: ATRAUMATIC, NORMAL INSPECTION, NORMOCEPHALIC - Eye Exam Eye Exam: EOMI, Normal appearance, PERRL Pupil Exam: NORMAL ACCOMODATION, PERRL - ENT Exam ENT Exam: Mucous Membranes Moist, Normal Oropharynx - Respiratory Exam Respiratory Exam: Clear to Ausculation Bilateral, NORMAL BREATHING PATTERN. absent: Chest Wall Tenderness, Prolonged Expiratory Phase, Respiratory Distress - Cardiovascular Exam Cardiovascular Exam: REGULAR RHYTHM, +S1, +S2 - GI/Abdominal Exam GI & Abdominal Exam: Soft, Normal Bowel Sounds - Extremities Exam Extremities Exam: Full ROM, Normal Inspection - Back Exam Back Exam: NORMAL INSPECTION. absent: CVA tenderness (L), CVA tenderness (R), paraspinal tenderness - Neurological Exam Neurological Exam: Alert, Awake, CN II-XII Intact, Normal Gait, Oriented x3 - Psychiatric Exam Psychiatric exam: Normal Affect, Normal Mood - Skin Skin Exam: Dry, Intact Assessment and Plan - Assessment and Plan (Free Text) Plan: Urinary Retention - unclear etiology - Cystoscopy 03/22 -Per Dr. Reid possiblely clear from urology on 03/22 if pass voiding trial - follow up w/ Dr. Rueda - pt remains afebrile, no WBCs, clean urine, CMP WNL - Bourgeois removed 03/20 (around noon), but patient was unable to void, so re- inserted ~6pm (03/20) - continue flomax 0.4mg daily - renal US - cysts -03/23 Voiding trial: Patient has pass 500 cc of urine. Will continue to monitor -Ciprofloxacin 400mg Q12 -Tramadol 50 mg PO QID Heal Ulcer - healing, apply off loading boots Hx Atrial Fibrillation - c/w home meds: Eliquis 5mg PO BID & digoxin 0.25mg daily - EKG: atrial fibrillation @ 76 BPM - echo - LV mildly dilated, mild concentric LV, EF 55-60%, moderate aortic regurg, buster regurg trace, aortic root mildy enlarged at 4.8 cm Hx Hypothyroidism - pharmacy has no record of meds - TSH 5.36, Free T4 1.64 Hx Insulin Dependent Type 2 DM - Accuchecks - HGA1C 8.8 - Levemir 40 units BID (started on 03/21) - ISS- medium (for coverage) - unable to verify units of patients humalog pen so not resumed Hx HTN - c/w home medications: coreg 3.125 mg BID & furosemide 40mg PO daily Leukocytosis - Resolved - Afebrile, not tachycardic, slight left shift, UA clean, CXR - no effusions or infiltrates noted - Will continue to monitor - U/C no growth Neuropathy -Gabapentin 300mg PO TID Prophylactic Measures - GI PPX: Pepcid 20 mg BID - DVT PPX: SCDs, eliquis 5mg BID -Omegat 3 1gm PO BID - PT/ OT - Regular Diet Disposition: Pt failed voiding trial 03/20. Patient had cathetor re-inserted and had cystoscopy on 03/22. Voiding trail 03/23 saw him evacuate 500 cc of urine.. F/ u with Dr. Reid recs. Co-reg held due to bradycardia, restart all meds on discharge. Assessment & Plan discussed with Dr. Hernandez. Esequiel Patino, PGY-2
[2018-03-23] MEDS: Digoxin 250 mcg (0.25 mg) Tab PO SCH (17:54)
[2018-03-24] MEDS: Ciprofloxacin 400mg/200ml D5W 400 MG/200 ML BAG IVPB SCH ×2 (05:04→18:00)
[2018-03-24] MEDS: (Novolin R) Insulin Human Regular 100 units/ml vial SC SCH ×4 (07:51→21:12)
[2018-03-24 08:31] LABS: BASO # 0.1 K/uL (0.0-0.2); BASO % 1.1 % (0.0-2.0); EOS # 0.5 K/uL (0.0-0.7); EOS % 6.6 % (0.0-4.0); HEMOGLOBIN 13.5 g/dL (12.0-18.0); LYMPH # 1.3 K/uL (1.0-4.3); LYMPH % 16.7 % (20.0-40.0); MEAN CELL VOLUME 79.6 fL (80.0-94.0); MEAN CORPUSCULAR HEMOGLOBIN 27.5 pg (27.0-31.0); MEAN CORPUSCULAR HGB CONC 34.6 g/dL (33.0-37.0); MEAN PLATELET VOLUME 9.1 fL (7.2-11.7); MONO # 0.6 K/uL (0.0-0.8); MONO % 7.4 % (0.0-10.0); NEUT # 5.2 K/uL (1.8-7.0); NEUT % 68.2 % (50.0-75.0); RBC 4.91 Mil/uL (4.40-5.90); RED CELL DISTRIBUTION WIDTH 17.2 % (11.5-14.5); WHITE BLOOD COUNT 7.6 K/uL (4.8-10.8)
[2018-03-24 08:55] LABS: ALB/GLOB RATIO 1.2 (1.0-2.1); ALBUMIN 3.5 g/dL (3.5-5.0); ALT/SGPT 40 U/L (21-72); AST/SGOT 23 U/L (17-59); BLOOD UREA NITROGEN 22 mg/dL (9-20); CALCIUM 8.8 mg/dl (8.6-10.4); GFR AFRICAN-AMERICAN > 60; GFR NON-AFRICAN AMERICAN 55
[2018-03-24] MEDS: Omega-3-Acid Ethyl Esters 1 GM Cap PO SCH ×2 (10:26→18:03)
[2018-03-24] MEDS: Insulin Detemir 100 units/ml Vial (Levemir) SC SCH ×2 (10:26→18:11)
--- NOTE | 2018-03-24 10:32 | CP.PCM.PN ---
Subjective - Date & Time of Evaluation Date of Evaluation: 03/24/18 Time of Evaluation: 10:32 - Subjective Subjective: PGY-[address] Hernandez's Service Patient seen and examined at [facility]. Per nursing, no acute events occurred overnight. Patient reports an improvement in urination. He still sometimes has a "full" sensation but it has improved. Patient denies any fevers, chills, nausea, vomiting, headaches, syncopal episodes, chest pain, or any other complaints. Objective - Vital Signs/Intake and Output Vital Signs (last 24 hours): Temp Pulse Resp BP Pulse Ox 99.6 F 48 L 20 146/84 97 03/24/18 07:00 03/24/18 08:00 03/24/18 07:00 03/24/18 10:26 03/24/18 07:00 Intake and Output: 03/24/18 03/24/18 06:59 18:59 Intake Total 1000 Output Total 2000 Balance -1000 - Medications Medications: Current Medications Acetaminophen (Tylenol 325mg Tab) 650 mg PO Q6 PRN PRN Reason: Pain, Mild (1-3) Apixaban (Eliquis) 5 mg PO BID [facility] Last Admin: 03/24/18 10:26 Dose: 5 mg Aspirin (Aspirin Chewable) 81 mg PO DAILY [facility] Last Admin: 03/24/18 10:26 Dose: 81 mg Carvedilol (Coreg) 3.125 mg PO BID [facility] Last Admin: 03/22/18 09:46 Dose: Not Given Dextrose (Dextrose 50% Inj) 0 ml IV STAT PRN; Protocol PRN Reason: Hypoglycemia Protocol Dextrose (Glutose 15) 0 gm PO ONCE PRN; Protocol PRN Reason: Hypoglycemia Protocol Digoxin (Lanoxin) 0.25 mg PO DAILY@1800 [facility] Last Admin: 03/23/18 17:54 Dose: 0.25 mg Famotidine (Pepcid) 20 mg PO BID [facility] Last Admin: 03/24/18 10:26 Dose: 20 mg Furosemide (Lasix) 40 mg PO DAILY [facility] Last Admin: 03/24/18 10:26 Dose: 40 mg Gabapentin (Neurontin) 300 mg PO TID [facility] Last Admin: 03/24/18 10:26 Dose: 300 mg Glucagon (Glucagen Diagnostic Kit) 0 mg IM STAT PRN; Protocol PRN Reason: Hypoglycemia Protocol Heparin Sodium (Porcine) (Heparin) 5,000 units SC Q12 [facility] Ciprofloxacin (Cipro 400mg/200ml Dsw) 400 mg in 200 mls @ 133 mls/hr IVPB Q12H [facility] PRN Reason: Protocol Last Admin: 03/24/18 05:04 Dose: 133 mls/hr Insulin Detemir (Levemir) 40 unit SC BID [facility] Last Admin: 03/24/18 10:26 Dose: 40 units Insulin Human Regular (Novolin R) 0 unit SC ACHS [facility] PRN Reason: Protocol Last Admin: 03/24/18 07:51 Dose: 3 units Qwdab-6-Smbs Ethyl Esters (Lovaza) 1 gm PO BID [facility] Last Admin: 03/24/18 10:26 Dose: 1 gm Rosuvastatin Calcium (Crestor) 5 mg PO HS [facility] Last Admin: 03/23/18 21:25 Dose: 5 mg Tamsulosin HCl (Flomax) 0.4 mg PO DAILY [facility] Last Admin: 03/24/18 10:26 Dose: 0.4 mg Tramadol HCl (Ultram) 50 mg PO QID PRN PRN Reason: Pain, moderate (4-7) - Labs Labs: 03/24/18 08:10 03/24/18 08:10 PT 14.6 SECONDS (9.7-12.2) H 03/21/18 09:43 INR 1.3 03/21/18 09:43 APTT 31 SECONDS (21-34) 03/21/18 09:43 - Head Exam Head Exam: ATRAUMATIC, NORMAL INSPECTION, NORMOCEPHALIC - Eye Exam Eye Exam: EOMI, Normal appearance, PERRL Pupil Exam: NORMAL ACCOMODATION - ENT Exam ENT Exam: Mucous Membranes Moist, Normal Oropharynx - Respiratory Exam Respiratory Exam: Clear to Ausculation Bilateral, NORMAL BREATHING PATTERN. absent: Respiratory Distress - Cardiovascular Exam Cardiovascular Exam: REGULAR RHYTHM, +S1, +S2 - GI/Abdominal Exam GI & Abdominal Exam: Soft, Normal Bowel Sounds - Extremities Exam Extremities Exam: Full ROM. absent: Pedal Edema - Back Exam Back Exam: NORMAL INSPECTION. absent: CVA tenderness (L), CVA tenderness (R), paraspinal tenderness - Neurological Exam Neurological Exam: Alert, Awake, CN II-XII Intact, Oriented x3 - Psychiatric Exam Psychiatric exam: Normal Affect, Normal Mood - Skin Skin Exam: Dry, Intact, Normal Color, Warm Assessment and Plan - Assessment and Plan (Free Text) Plan: Urinary Retention - unclear etiology - Cystoscopy 03/22 -Per Dr. Reid possiblely clear from urology on 03/22 if pass voiding trial - follow up w/ Dr. Rueda - pt remains afebrile, no WBCs, clean urine, CMP WNL - Bourgeois removed 03/20 (around noon), but patient was unable to void, so re- inserted ~6pm (03/20) - continue flomax 0.4mg daily - renal US - cysts -03/23 Voiding trial: Patient passed voiding trial 1200 cc of urine over 8 hour shift -03/24 Void: 800 cc overnight. -Ciprofloxacin 400mg Q12 -Tramadol 50 mg PO QID Heal Ulcer - healing, apply off loading boots Hx Atrial Fibrillation - c/w home meds: Eliquis 5mg PO BID & digoxin 0.25mg daily - EKG: atrial fibrillation @ 76 BPM - echo - LV mildly dilated, mild concentric LV, EF 55-60%, moderate aortic regurg, buster regurg trace, aortic root mildy enlarged at 4.8 cm Hx Hypothyroidism - pharmacy has no record of meds - TSH 5.36, Free T4 1.64 Hx Insulin Dependent Type 2 DM - Accuchecks - HGA1C 8.8 - Levemir 40 units BID (started on 03/21) - ISS- medium (for coverage) - unable to verify units of patients humalog pen so not resumed Hx HTN - c/w home medications: coreg 3.125 mg BID & furosemide 40mg PO daily Leukocytosis - Resolved - Afebrile, not tachycardic, slight left shift, UA clean, CXR - no effusions or infiltrates noted - Will continue to monitor - U/C no growth Neuropathy -Gabapentin 300mg PO TID Prophylactic Measures - GI PPX: Pepcid 20 mg BID - DVT PPX: SCDs, eliquis 5mg BID -Omegat 3 1gm PO BID - PT/ OT - Regular Diet Disposition: Pt failed voiding trial 03/20. Patient had cathetor re-inserted and had cystoscopy on 03/22. Voiding trail 03/23 saw him pass voiding trail. F/u with Dr. Reid recs. Message made on Dr. Franklin's phone for reccomendations. Co- reg held due to bradycardia, restart all meds on discharge. Patient cleared for discharge, however Physical therapy is recommending [facility]. Patient refusing to go to rehab. Attempts to arrange transport for discharge today were unsuccessful. Patient however, lives on 2nd floor with son and will likely need a walker or cane for assistance. Will hold off discharge until Sunday 03/25 to be provided walker or cane for ambulation. Will try family tomorrow and plan for discharge in the A.M. Assessment & Plan discussed with Dr. Hernandez. Esequiel Patino, PGY-2
--- NOTE | 2018-03-24 10:56 | US ---
Date of service: 03/24/2018 PROCEDURE: Ultrasound of the Bladder HISTORY: to check post void urine COMPARISON: None available. TECHNIQUE: Sonographic evaluation of the bladder was performed. FINDINGS: Mild diffuse urinary bladder wall thickening without evidence of intraluminal debris. No calculus or gross mass lesion. No free fluid in pelvis. Bilateral ureteral jets are noted. Prevoid Volume: 597.8 cc. Post void residual: 27.9 cc. The prostate measures 4.8 x 2.6 x 4.25 centimeter with a total volume of 27.9 mL. IMPRESSION: Mild diffuse urinary bladder wall thickening. Calculated postvoid residual is 27.9 mL.
--- NOTE | 2018-03-24 13:21 | CP.PCM.DIS ---
Provider - Provider Date of Admission: 03/22/18 20:05 Attending physician: Raymond Hernandez Jr, MD Time Spent in preparation of Discharge (in minutes): 45 Hospital Course - Lab Results Lab Results: Micro Results 03/19/18 22:37 Urine,Bourgeois Urine Culture - Final No Growth (<1,000 CFU/ML) Most Recent Lab Values WBC 7.6 K/uL (4.8-10.8) 03/24/18 08:10 RBC 4.91 Mil/uL (4.40-5.90) 03/24/18 08:10 Hgb 13.5 g/dL (12.0-18.0) 03/24/18 08:10 Hct 39.1 % (35.0-51.0) 03/24/18 08:10 MCV 79.6 fL (80.0-94.0) L 03/24/18 08:10 MCH 27.5 pg (27.0-31.0) 03/24/18 08:10 MCHC 34.6 g/dL (33.0-37.0) 03/24/18 08:10 RDW 17.2 % (11.5-14.5) H 03/24/18 08:10 Plt Count 156 K/uL (130-400) 03/24/18 08:10 MPV 9.1 fL (7.2-11.7) 03/24/18 08:10 Neut % (Auto) 68.2 % (50.0-75.0) 03/24/18 08:10 Lymph % (Auto) 16.7 % (20.0-40.0) L 03/24/18 08:10 [place] % (Auto) 7.4 % (0.0-10.0) 03/24/18 08:10 Eos % (Auto) 6.6 % (0.0-4.0) H 03/24/18 08:10 Baso % (Auto) 1.1 % (0.0-2.0) 03/24/18 08:10 Neut # (Auto) 5.2 K/uL (1.8-7.0) 03/24/18 08:10 Lymph # (Auto) 1.3 K/uL (1.0-4.3) 03/24/18 08:10 [place] # (Auto) 0.6 K/uL (0.0-0.8) 03/24/18 08:10 Eos # (Auto) 0.5 K/uL (0.0-0.7) 03/24/18 08:10 Baso # (Auto) 0.1 K/uL (0.0-0.2) 03/24/18 08:10 PT 14.6 SECONDS (9.7-12.2) H 03/21/18 09:43 INR 1.3 03/21/18 09:43 APTT 31 SECONDS (21-34) 03/21/18 09:43 Sodium 137 mmol/L (132-148) 03/24/18 08:10 Potassium 3.8 mmol/L (3.6-5.2) 03/24/18 08:10 Chloride 101 mmol/L (98-107) 03/24/18 08:10 Carbon Dioxide 25 mmol/L (22-30) 03/24/18 08:10 Anion Gap 15 (10-20) 03/24/18 08:10 BUN 22 mg/dL (9-20) H 03/24/18 08:10 Creatinine 1.3 mg/dL (0.8-1.5) 03/24/18 08:10 Est GFR ( Amer) > 60 03/24/18 08:10 Est GFR (Non-Af Amer) 55 03/24/18 08:10 POC Glucose (mg/dL) 235 mg/dL (65-110) H 03/24/18 06:40 Random Glucose 183 mg/dL (75-110) H 03/24/18 08:10 Hemoglobin A1c 8.8 % (4.2-6.5) H 03/19/18 21:16 Calcium 8.8 mg/dl (8.6-10.4) 03/24/18 08:10 Phosphorus 3.6 mg/dL (2.5-4.5) 03/24/18 08:10 Magnesium 1.9 mg/dL (1.6-2.3) 03/24/18 08:10 Total Bilirubin 0.6 mg/dL (0.2-1.3) 03/24/18 08:10 AST 23 U/L (17-59) 03/24/18 08:10 ALT 40 U/L (21-72) 03/24/18 08:10 Alkaline Phosphatase 67 U/L (38-126) 03/24/18 08:10 Troponin I 0.0410 ng/mL (0.00-0.120) 03/19/18 19:37 NT-Pro-B Natriuret Pep 920 pg/mL (0-900) H 03/19/18 19:37 Total Protein 6.4 g/dL (6.3-8.3) 03/24/18 08:10 Albumin 3.5 g/dL (3.5-5.0) 03/24/18 08:10 Globulin 2.9 gm/dL (2.2-3.9) 03/24/18 08:10 Albumin/Globulin Ratio 1.2 (1.0-2.1) 03/24/18 08:10 Triglycerides 123 mg/dL (0-149) 03/19/18 22:23 Cholesterol 120 mg/dL (0-199) 03/19/18 22:23 LDL Cholesterol Direct 67 mg/dL (0-129) 03/19/18 22:23 HDL Cholesterol 24 mg/dL (30-70) L 03/19/18 22:23 Free T4 1.64 ng/dL (0.78-2.19) 03/22/18 08:33 TSH 3rd Generation 5.36 mIU/L (0.46-4.68) H 03/22/18 08:33 Urine Color Yellow (YELLOW) 03/19/18 19:54 Urine Clarity Clear (Clear) 03/19/18 19:54 Urine pH 5.0 (5.0-8.0) 03/19/18 19:54 Ur Specific [place] 1.008 (1.003-1.030) 03/19/18 19:54 Urine Protein Negative mg/dL (NEGATIVE) 03/19/18 19:54 Urine Glucose (UA) 3+ mg/dL (Normal) H 03/19/18 19:54 Urine Ketones Negative mg/dL (NEGATIVE) 03/19/18 19:54 Urine Blood Negative (NEGATIVE) 03/19/18 19:54 Urine Nitrate Negative (NEGATIVE) 03/19/18 19:54 Urine Bilirubin Negative (NEGATIVE) 03/19/18 19:54 Urine Urobilinogen Normal mg/dL (0.2-1.0) 03/19/18 19:54 Ur Leukocyte Esterase Neg Pablo/uL (Negative) 03/19/18 19:54 Urine WBC (Auto) 1 /hpf (0-5) 03/19/18 19:54 Urine RBC (Auto) 2 /hpf (0-3) 03/19/18 19:54 Urine Sperm (Auto) Rare /hpf (NONE) H 03/19/18 19:54 - Hospital Course Hospital Course: HPI: This is a 72 year old male with PMHx of Hypertension, Insulin Dependent Type 2 DM, Atrial Fibrillation on AC, and Hypothyroidism, who is presenting with lower abdominal pain and urinary retention x 1 day. Patient reports the past few weeks he has noted that he is unable to void fully, only small volumes at a time, urinary dribble and nocturia. This morning he woke up and was able to void as he usually does. He noticed throughout the day that he started to have lower abdominal distention and pain, especially when he pushed above his groin. He went to scheduled, routine appointment with Dr. Hernandez, who instructed the patient to come in. He admitted to suprapubic abdominal pain and inability to void. Patient ambulates with wheelchair and walker due to recent left hip surgery (11/2017). Denied any associated fever, chills, headache, chest pain, n/v /d/c, or dysuria, hematuria, penile discharge. PMHx: Hypertension, Insulin Dependent Type 2 DM, Atrial Fibrillation on AC, and Hypothyroidism, PSHx: Bilateral hip surgery, right ankle surgery Meds: Patient is unaware of home medications, will list after calling pharmacy All: NKDA SHx: Denied any tobacco or illicit drug use, admits to excessive alcohol use in the past but quit 12 years ago FHx: Unremarkable for cardiac, CVAs, or malignancies PMD: David Pharmacy: [facility] [phone] Hospital Course: Patient was admitted for urinary retention. While admitted he was seen by Urology Dr. Reid. Patient had a cystoscopy Imagin. EKG: Atrial fibrillation @76bpm 2. Renal ultrasound: 3. Abdominal xray: negative 4.Pelvis ultrasound: mild diffuse urinary bladder wall thickening, postvoidal residual volume 27.9ml 5.Chest xray: Stable cardiomegaly. No active disease. 6. Echo: EF 55-60%, mild concentric lvh., moderate aortic regurgitation, mitral regurgitation trace, aortic root mildly enlarged. Discharge Instructions: 1.F/u with PMD Dr. Hernandez within 2 weeks of discharge. 2. Patient can restart all home medications. 3. Advised patient to check blood pressure and heart rate at home and if Blood pressure less than <110 OR heart rate <60 to not take medication. Advised patient to follow up with PMD Dr. Hernandez for further management. 4. Return to hospital for any new or worseningy symptoms. Medications: 1.Rosuvastatin 5mg PO HS, #30, No refills 2. Flomax .4mg PO Daily, #30, No refills 3.Digoxin .25mg PO Daily, #30, No refills 4.Furosemide 40mg PO Daily, #30, No refills Discharge Exam - Head Exam Head Exam: ATRAUMATIC, NORMAL INSPECTION, NORMOCEPHALIC Discharge Plan - Discharge Medications Prescriptions: Carvedilol [Coreg] 3.125 mg PO BID #60 tab Digoxin [Lanoxin] 0.25 mg PO DAILY #30 tab Furosemide [Lasix] 40 mg PO DAILY #30 tab Rosuvastatin Calcium 5 mg PO HS #30 tablet Tamsulosin [Flomax] 0.4 mg PO DAILY #30 cap - Follow Up Plan Condition: GOOD Disposition: HOME/ ROUTINE
--- NOTE | 2018-03-24 14:24 | CP.PCM.PN ---
Subjective - Date & Time of Evaluation Date of Evaluation: 03/24/18 Time of Evaluation: 14:24 Objective - Vital Signs/Intake and Output Vital Signs (last 24 hours): Temp Pulse Resp BP Pulse Ox 99.6 F 48 L 20 146/84 97 03/24/18 07:00 03/24/18 08:00 03/24/18 07:00 03/24/18 10:26 03/24/18 07:00 Intake and Output: 03/24/18 03/24/18 06:59 18:59 Intake Total 1000 Output Total 2000 Balance -1000 - Medications Medications: Current Medications Acetaminophen (Tylenol 325mg Tab) 650 mg PO Q6 PRN PRN Reason: Pain, Mild (1-3) Apixaban (Eliquis) 5 mg PO BID [facility] Last Admin: 03/24/18 10:26 Dose: 5 mg Aspirin (Aspirin Chewable) 81 mg PO DAILY [facility] Last Admin: 03/24/18 10:26 Dose: 81 mg Carvedilol (Coreg) 3.125 mg PO BID [facility] Last Admin: 03/22/18 09:46 Dose: Not Given Dextrose (Dextrose 50% Inj) 0 ml IV STAT PRN; Protocol PRN Reason: Hypoglycemia Protocol Dextrose (Glutose 15) 0 gm PO ONCE PRN; Protocol PRN Reason: Hypoglycemia Protocol Digoxin (Lanoxin) 0.25 mg PO DAILY@1800 [facility] Last Admin: 03/23/18 17:54 Dose: 0.25 mg Famotidine (Pepcid) 20 mg PO BID [facility] Last Admin: 03/24/18 10:26 Dose: 20 mg Furosemide (Lasix) 40 mg PO DAILY [facility] Last Admin: 03/24/18 10:26 Dose: 40 mg Gabapentin (Neurontin) 300 mg PO TID [facility] Last Admin: 03/24/18 13:20 Dose: 300 mg Glucagon (Glucagen Diagnostic Kit) 0 mg IM STAT PRN; Protocol PRN Reason: Hypoglycemia Protocol Heparin Sodium (Porcine) (Heparin) 5,000 units SC Q12 [facility] Ciprofloxacin (Cipro 400mg/200ml Dsw) 400 mg in 200 mls @ 133 mls/hr IVPB Q12H [facility] PRN Reason: Protocol Last Admin: 03/24/18 05:04 Dose: 133 mls/hr Insulin Detemir (Levemir) 40 unit SC BID [facility] Last Admin: 03/24/18 10:26 Dose: 40 units Insulin Human Regular (Novolin R) 0 unit SC ACHS [facility] PRN Reason: Protocol Last Admin: 03/24/18 12:47 Dose: 3 units [id number] Ethyl Esters (Lovaza) 1 gm PO BID [facility] Last Admin: 03/24/18 10:26 Dose: 1 gm Rosuvastatin Calcium (Crestor) 5 mg PO HS [facility] Last Admin: 03/23/18 21:25 Dose: 5 mg Tamsulosin HCl (Flomax) 0.4 mg PO DAILY [facility] Last Admin: 03/24/18 10:26 Dose: 0.4 mg Tramadol HCl (Ultram) 50 mg PO QID PRN PRN Reason: Pain, moderate (4-7) - Labs Labs: 03/24/18 08:10 03/24/18 08:10 PT 14.6 SECONDS (9.7-12.2) H 03/21/18 09:43 INR 1.3 03/21/18 09:43 APTT 31 SECONDS (21-34) 03/21/18 09:43
[2018-03-24] MEDS: Digoxin 250 mcg (0.25 mg) Tab PO SCH (18:03)
[2018-03-25] MEDS: Ciprofloxacin 400mg/200ml D5W 400 MG/200 ML BAG IVPB SCH ×2 (05:06→17:14)
[2018-03-25] MEDS: (Novolin R) Insulin Human Regular 100 units/ml vial SC SCH ×3 (08:05→17:13)
[2018-03-25 08:13] LABS: BASO # 0.1 K/uL (0.0-0.2); BASO % 0.8 % (0.0-2.0); EOS # 0.5 K/uL (0.0-0.7); EOS % 6.4 % (0.0-4.0); HEMOGLOBIN 13.7 g/dL (12.0-18.0); LYMPH # 1.4 K/uL (1.0-4.3); LYMPH % 18.3 % (20.0-40.0); MEAN CORPUSCULAR HEMOGLOBIN 26.8 pg (27.0-31.0); MEAN CORPUSCULAR HGB CONC 33.5 g/dL (33.0-37.0); MONO # 0.6 K/uL (0.0-0.8); MONO % 7.7 % (0.0-10.0); NEUT # 5.1 K/uL (1.8-7.0); NEUT % 66.8 % (50.0-75.0); RBC 5.1 Mil/uL (4.40-5.90); WHITE BLOOD COUNT 7.6 K/uL (4.8-10.8)
--- NOTE | 2018-03-25 08:20 | CP.PCM.PN ---
Objective - Vital Signs/Intake and Output Vital Signs (last 24 hours): Temp Pulse Resp BP Pulse Ox 97.7 F 54 L 20 126/74 98 03/25/18 07:00 03/25/18 07:00 03/25/18 07:00 03/25/18 07:00 03/25/18 07:00 Intake and Output: 03/25/18 03/25/18 06:59 18:59 Intake Total 1720 Output Total 1950 Balance -230 - Medications Medications: Current Medications Acetaminophen (Tylenol 325mg Tab) 650 mg PO Q6 PRN PRN Reason: Pain, Mild (1-3) Apixaban (Eliquis) 5 mg PO BID [facility] Last Admin: 03/24/18 18:02 Dose: 5 mg Aspirin (Aspirin Chewable) 81 mg PO DAILY [facility] Last Admin: 03/24/18 10:26 Dose: 81 mg Carvedilol (Coreg) 3.125 mg PO BID [facility] Last Admin: 03/22/18 09:46 Dose: Not Given Dextrose (Dextrose 50% Inj) 0 ml IV STAT PRN; Protocol PRN Reason: Hypoglycemia Protocol Dextrose (Glutose 15) 0 gm PO ONCE PRN; Protocol PRN Reason: Hypoglycemia Protocol Digoxin (Lanoxin) 0.25 mg PO DAILY@1800 [facility] Last Admin: 03/24/18 18:03 Dose: Not Given Famotidine (Pepcid) 20 mg PO BID [facility] Last Admin: 03/24/18 18:04 Dose: 20 mg Furosemide (Lasix) 40 mg PO DAILY [facility] Last Admin: 03/24/18 10:26 Dose: 40 mg Gabapentin (Neurontin) 300 mg PO TID [facility] Last Admin: 03/24/18 18:03 Dose: 300 mg Glucagon (Glucagen Diagnostic Kit) 0 mg IM STAT PRN; Protocol PRN Reason: Hypoglycemia Protocol Heparin Sodium (Porcine) (Heparin) 5,000 units SC Q12 [facility] Ciprofloxacin (Cipro 400mg/200ml Dsw) 400 mg in 200 mls @ 133 mls/hr IVPB Q12H [facility] PRN Reason: Protocol Last Admin: 03/25/18 05:06 Dose: 133 mls/hr Insulin Detemir (Levemir) 40 unit SC BID [facility] Last Admin: 03/24/18 18:11 Dose: 40 units Insulin Human Regular (Novolin R) 0 unit SC ACHS [facility] PRN Reason: Protocol Last Admin: 03/25/18 08:05 Dose: 2 units [id number] Ethyl Esters (Lovaza) 1 gm PO BID [facility] Last Admin: 03/24/18 18:03 Dose: 1 gm Rosuvastatin Calcium (Crestor) 5 mg PO HS [facility] Last Admin: 03/24/18 21:14 Dose: 5 mg Tamsulosin HCl (Flomax) 0.4 mg PO DAILY [facility] Last Admin: 03/24/18 10:26 Dose: 0.4 mg Tramadol HCl (Ultram) 50 mg PO QID PRN PRN Reason: Pain, moderate (4-7) - Labs Labs: 03/25/18 08:05 03/24/18 08:10 PT 14.6 SECONDS (9.7-12.2) H 03/21/18 09:43 INR 1.3 03/21/18 09:43 APTT 31 SECONDS (21-34) 03/21/18 09:43
[2018-03-25 08:30] LABS: ALB/GLOB RATIO 1.3 (1.0-2.1); ALBUMIN 3.6 g/dL (3.5-5.0); ALT/SGPT 34 U/L (21-72); AST/SGOT 24 U/L (17-59); BLOOD UREA NITROGEN 23 mg/dL (9-20); CALCIUM 8.8 mg/dl (8.6-10.4); GFR AFRICAN-AMERICAN > 60; GFR NON-AFRICAN AMERICAN 50
[2018-03-25] MEDS: Omega-3-Acid Ethyl Esters 1 GM Cap PO SCH ×2 (09:28→17:12)
[2018-03-25] MEDS: Insulin Detemir 100 units/ml Vial (Levemir) SC SCH ×2 (10:04→17:13)
--- NOTE | 2018-03-25 11:07 | OP ---
PROCEDURE DATE: 03/22/2018 PREOPERATIVE DIAGNOSES: Urinary retention, voiding dysfunction, decreased flow of stream, nocturia, hematuria. POSTOPERATIVE DIAGNOSES: Urinary retention, voiding dysfunction, decreased flow of stream, nocturia, hematuria. PROCEDURES: Cystoscopy, cystogram. SURGEON: Rayray Reid MD COMPLICATIONS: There were no complications. BLOOD LOSS: Less than 10 mL. The patient was done in entirely supine position. There were no complications. INDICATIONS: His history is significant. He is a 72-year-old gentleman. He has got bilateral hip replacements, and therefore after discussing options, we decided to go ahead and proceed with a cystoscope and a cystogram. He reports that his baseline was reasonably good urinary voiding habits till this past week when there was a sudden onset. Now, he is here for further diagnostic studies. The patient felt very uncomfortable. We are going to try to discharge him home with a Bourgeois. He was admitted with new-onset AFib. Then subsequently we are going to discharge him home but he felt uncomfortable going home. FINDINGS: 1. Normal anterior urethra. 2. No strictures, and the verumontanum is minimally visually occlusive, see the very nice pictures on the chart where he is actually opened. The bladder itself was inspected. There was some debris noted. No bladder cancer was identified. No real abnormalities are detected and checked. It is not a visually occlusive prostate, but it almost looks moapa but just not occlusive like a younger man's prostate. DESCRIPTION OF PROCEDURE: After obtaining informed consent, the patient was placed on the table. Routine monitors were placed. Time-out was called. We confirmed the patient positioning. We introduced the cystoscope via the urethra. We did a program director scouting film. We observed at least bilateral hips, but a tremendous amount of screws, and we felt a little uncomfortable to do too much manipulation. We continued as follows: We introduced the cystoscope via the urethra. Under direct vision, we used a flexible cystoscope, so we did not place him in lithotomy position. The anterior urethra was normal. No strictures noted, and the verumontanum was identified. Verumontanum is visually not overly occlusive. See the pictures that are in the chart. No abnormalities are detected within the bladder mucosa. There is some redness and erythema. The patient tolerated the procedure well without complication. Cystoscope was removed. We placed the Bourgeois catheter under sterile condition. The patient tolerated the procedure without complication. Rayray Reid MD
[2018-03-25 17:05] VITALS: BP 108/64; PULSE 71; TEMP 98.5; O2SAT 99
[2018-03-25] MEDS: Digoxin 250 mcg (0.25 mg) Tab PO SCH (17:12)
[2018-03-25 17:14] VITALS: PULSE 70
--- NOTE | 2018-03-25 20:18 | CP.PCM.DIS ---
Provider - Provider Date of Admission: 03/22/18 20:05 Attending physician: Raymond Hernandez Jr, MD Time Spent in preparation of Discharge (in minutes): 45 Hospital Course - Lab Results Lab Results: Micro Results 03/19/18 22:37 Urine,Siegel Urine Culture - Final No Growth (<1,000 CFU/ML) Most Recent Lab Values WBC 7.6 K/uL (4.8-10.8) 03/25/18 08:05 RBC 5.10 Mil/uL (4.40-5.90) 03/25/18 08:05 Hgb 13.7 g/dL (12.0-18.0) 03/25/18 08:05 Hct 40.8 % (35.0-51.0) 03/25/18 08:05 MCV 80.0 fL (80.0-94.0) 03/25/18 08:05 MCH 26.8 pg (27.0-31.0) L 03/25/18 08:05 MCHC 33.5 g/dL (33.0-37.0) 03/25/18 08:05 RDW 17.0 % (11.5-14.5) H 03/25/18 08:05 Plt Count 158 K/uL (130-400) 03/25/18 08:05 MPV 9.0 fL (7.2-11.7) 03/25/18 08:05 Neut % (Auto) 66.8 % (50.0-75.0) 03/25/18 08:05 Lymph % (Auto) 18.3 % (20.0-40.0) L 03/25/18 08:05 [place] % (Auto) 7.7 % (0.0-10.0) 03/25/18 08:05 Eos % (Auto) 6.4 % (0.0-4.0) H 03/25/18 08:05 Baso % (Auto) 0.8 % (0.0-2.0) 03/25/18 08:05 Neut # (Auto) 5.1 K/uL (1.8-7.0) 03/25/18 08:05 Lymph # (Auto) 1.4 K/uL (1.0-4.3) 03/25/18 08:05 [place] # (Auto) 0.6 K/uL (0.0-0.8) 03/25/18 08:05 Eos # (Auto) 0.5 K/uL (0.0-0.7) 03/25/18 08:05 Baso # (Auto) 0.1 K/uL (0.0-0.2) 03/25/18 08:05 PT 14.6 SECONDS (9.7-12.2) H 03/21/18 09:43 INR 1.3 03/21/18 09:43 APTT 31 SECONDS (21-34) 03/21/18 09:43 Sodium 136 mmol/L (132-148) 03/25/18 08:05 Potassium 4.1 mmol/L (3.6-5.2) 03/25/18 08:05 Chloride 100 mmol/L (98-107) 03/25/18 08:05 Carbon Dioxide 30 mmol/L (22-30) 03/25/18 08:05 Anion Gap 11 (10-20) 03/25/18 08:05 BUN 23 mg/dL (9-20) H 03/25/18 08:05 Creatinine 1.4 mg/dL (0.8-1.5) 03/25/18 08:05 Est GFR ( Amer) > 60 03/25/18 08:05 Est GFR (Non-Af Amer) 50 03/25/18 08:05 POC Glucose (mg/dL) 299 mg/dL (65-110) H 03/25/18 16:49 Random Glucose 180 mg/dL (75-110) H 03/25/18 08:05 Hemoglobin A1c 8.8 % (4.2-6.5) H 03/19/18 21:16 Calcium 8.8 mg/dl (8.6-10.4) 03/25/18 08:05 Phosphorus 3.4 mg/dL (2.5-4.5) 03/25/18 08:05 Magnesium 1.9 mg/dL (1.6-2.3) 03/25/18 08:05 Total Bilirubin 0.8 mg/dL (0.2-1.3) 03/25/18 08:05 AST 24 U/L (17-59) 03/25/18 08:05 ALT 34 U/L (21-72) 03/25/18 08:05 Alkaline Phosphatase 65 U/L (38-126) 03/25/18 08:05 Troponin I 0.0410 ng/mL (0.00-0.120) 03/19/18 19:37 NT-Pro-B Natriuret Pep 920 pg/mL (0-900) H 03/19/18 19:37 Total Protein 6.3 g/dL (6.3-8.3) 03/25/18 08:05 Albumin 3.6 g/dL (3.5-5.0) 03/25/18 08:05 Globulin 2.7 gm/dL (2.2-3.9) 03/25/18 08:05 Albumin/Globulin Ratio 1.3 (1.0-2.1) 03/25/18 08:05 Triglycerides 123 mg/dL (0-149) 03/19/18 22:23 Cholesterol 120 mg/dL (0-199) 03/19/18 22:23 LDL Cholesterol Direct 67 mg/dL (0-129) 03/19/18 22:23 HDL Cholesterol 24 mg/dL (30-70) L 03/19/18 22:23 Free T4 1.64 ng/dL (0.78-2.19) 03/22/18 08:33 TSH 3rd Generation 5.36 mIU/L (0.46-4.68) H 03/22/18 08:33 Urine Color Yellow (YELLOW) 03/19/18 19:54 Urine Clarity Clear (Clear) 03/19/18 19:54 Urine pH 5.0 (5.0-8.0) 03/19/18 19:54 Ur Specific [place] 1.008 (1.003-1.030) 03/19/18 19:54 Urine Protein Negative mg/dL (NEGATIVE) 03/19/18 19:54 Urine Glucose (UA) 3+ mg/dL (Normal) H 03/19/18 19:54 Urine Ketones Negative mg/dL (NEGATIVE) 03/19/18 19:54 Urine Blood Negative (NEGATIVE) 03/19/18 19:54 Urine Nitrate Negative (NEGATIVE) 03/19/18 19:54 Urine Bilirubin Negative (NEGATIVE) 03/19/18 19:54 Urine Urobilinogen Normal mg/dL (0.2-1.0) 03/19/18 19:54 Ur Leukocyte Esterase Neg Pablo/uL (Negative) 03/19/18 19:54 Urine WBC (Auto) 1 /hpf (0-5) 03/19/18 19:54 Urine RBC (Auto) 2 /hpf (0-3) 03/19/18 19:54 Urine Sperm (Auto) Rare /hpf (NONE) H 03/19/18 19:54 - Hospital Course Hospital Course: PMHx: Hypertension, Insulin Dependent Type 2 DM, Atrial Fibrillation on AC, and Hypothyroidism, PSHx: Bilateral hip surgery, right ankle surgery Meds: Patient is unaware of home medications, will list after calling pharmacy All: NKDA SHx: Denied any tobacco or illicit drug use, admits to excessive alcohol use in the past but quit 12 years ago FHx: Unremarkable for cardiac, CVAs, or malignancies PMD: David Upon Admission: This is a 72 year old male with PMHx of Hypertension, Insulin Dependent Type 2 DM, Atrial Fibrillation on AC, and Hypothyroidism, who is presenting with lower abdominal pain and urinary retention x 1 day. Patient reports the past few weeks he has noted that he is unable to void fully, only small volumes at a time, urinary dribble and nocturia. This morning he woke up and was able to void as he usually does. He noticed throughout the day that he started to have lower abdominal distention and pain, especially when he pushed above his groin. He went to scheduled, routine appointment with Dr. Hernandez, who instructed the patient to come in. He admitted to suprapubic abdominal pain and inability to void. Patient ambulates with wheelchair and walker due to recent left hip surgery (11/2017). Denied any associated fever, chills, headache, chest pain, n/v/d/c, or dysuria, hematuria, penile discharge. Hospital Course: Patient came to hospital for lower abdominal pain and urinary retention for 1 day. Siegel was inserted and voiding trial was scheduled for following day. However, patient failed voiding trial and siegel was re-inserted and urology consulted was placed for possible cystoscopy. Passed voiding trial 03/22. Cystoscopy showed normal anterior urethra with no strictures, and the verumontanum is minimally visually occlusive. Bradycardia was noted so coreg was held. Patient was instructed to restart all home meds including coreg. Imagin03/19/2018 EKG : Afib 03/19/2018 Echo: LV mildly dilated, mild concentric LV, EF- 55-60%, moderate aortic regurg, mitral regurg trace, aortic root mildly enlarged at 4.8 03/19/2018 CXR : stable cardiomegaly, no interval acute cardiopulmonary disease appreciated 03/19/2018 Bladder U/S: Bilateral renal cysts, hepatic steatosis 03/22/2018 Abd Xray: No active disease 03/24/2018 Pelvis U/S: Mild diffuse urinary bladder wall thickening, calculated PVR 27.9 mL Discharge Instructions: The patient is stable for the discharge home according to Dr. Hernandez. The patient should resume these medications at home at the time of discharge as follows: Eliquis 5mg orally twice daily Xarelto, Coreg 3.125 mg by mouth twice a day, digoxin 0.25mg orally, furosemide 40mg orally a day, resume the home dose of Atorvastatin, flomax 0.4 mg orally, gabapentin 300 mg orally three times a day. The patient must continue with Dr. Hernandez a week after discharge. The patient must return to the emergency department if the symptoms reappear or worsen. The patient understands and agrees to plan. Discharge Plan - Discharge Medications Prescriptions: Digoxin [Lanoxin] 0.25 mg PO DAILY #30 tab Furosemide [Lasix] 40 mg PO DAILY #30 tab Tamsulosin [Flomax] 0.4 mg PO DAILY #30 cap - Follow Up Plan Condition: GOOD Disposition: HOME/ ROUTINE Instructions: Cystoscopy, Atrial Fibrillation (DC), Carvedilol, Digoxin, Furosemide, Rosuvastatin, Tamsulosin, Urinary Retention (DC) Additional Instructions: The patient is stable for the discharge home according to Dr. Hernandez. The patient should resume these medications at home at the time of discharge as follows: Eliquis 5mg orally twice daily Xarelto, Coreg 3.125 mg by mouth twice a day, digoxin 0.25mg orally, furosemide 40mg orally a day, resume the home dose of Atorvastatin, flomax 0.4 mg orally, gabapentin 300 mg orally three times a day. The patient must continue with Dr. Hernandez a week after discharge. The patient must return to the emergency department if the symptoms reappear or worsen. The patient understands and agrees to plan. El paciente est estable para la descarga a casa segn el Dr. Hernandez. El paciente debe reanudar estos medicamentos en el hogar al momento del dominique alex se indica : Eliquis 5 mg por va oral las veces al da Xarelto, coreg 3.125mg por va oral dos veces al da, digoxina 0,25 mg por va oral, furosemida 40 mg por va oral al da, la dosis domiciliaria de Atorvastatina, flomax 0.4 mg por va oral de insulina, gabapentina 300 mg por va oral juan veces al da. El paciente debe seguir con el Dr. Hernandez osmar semana despus del dominique. El paciente debe regresar al servicio de urgencias si los sntomas reaparecen o empeoran. El paciente entiende y acepta el plano. Referrals: Raymond Hernandez Jr., MD [Medical Doctor] - 1 Week Jc Reid MD [Staff Provider] -
== END 2018-03-25 18:57 | disposition home or self-care (01) | DRG 696 ==
LOC: C.ER 17:17 → C.9E 21:10 → C.6T 22:55 → OBSVTOIN 03-22 20:05
PROVIDERS: ADMIT Internal Medicine; ATTEND Internal Medicine
PROC: BT00ZZZ Plain Radiography of Bladder (ICD-10-PCS; 2018-03-22)
PROC: 0TJB8ZZ Inspection of Bladder, Via Natural or Artificial Opening Endoscopic (ICD-10-PCS; principal; 2018-03-22 10:00)
DX: R33.8 Other retention of urine (principal); I48.91 Unspecified atrial fibrillation; R35.1 Nocturia; R39.198 Other difficulties with micturition; E03.9 Hypothyroidism, unspecified; R31.9 Hematuria, unspecified; R00.1 Bradycardia, unspecified; D72.829 Elevated white blood cell count, unspecified; E11.9 Type 2 diabetes mellitus without complications; I08.0 Rheumatic disorders of both mitral and aortic valves; I10 Essential (primary) hypertension; Z96.643 Presence of artificial hip joint, bilateral; Z79.01 Long term (current) use of anticoagulants; Z79.4 Long term (current) use of insulin

== ENCOUNTER 2018-07-21 16:05 | Inpatient (IN) | payer MEDICARE, MEDICAID ==
[2018-07-21 16:07] VITALS: BMI 31.0
--- NOTE | 2018-07-21 16:17 | C.PDOC ---
History Of Present Illness 72 year old male, with PMHx of Afib on Eliquis, HTN, CHF on Digoxin, is brought to ED via ambulance for evaluation altered mental status and aphasia. As per family, pt was last observed to be normal at 10pm last night. Pt was found to be confused this afternoon, and EMS was called. Code stroke was activated upon arrival. Blood sugar was found to be in 200s. Limited history at this time. Denies fever, or any other complaints at this time. Time Seen by Provider: 07/21/18 16:12 History Per: Patient, EMS, Family History/Exam Limitations: no limitations Onset/Duration Of Symptoms: Sudden Onset Current Symptoms Are (Timing): Still Present Recent travel outside of the [place]: No Additional History Per: EMS - Symptoms Of CVA Associated Symptoms: New Confusion Past Medical History Reviewed: Historical Data, Nursing Documentation, Vital Signs - Medical History PMH: Atrial Fibrillation, HTN - [facility] Procedures INSPECTION OF BLADDER, ENDO (03/22/18) PLAIN RADIOGRAPHY OF BLADDER (03/22/18) Family History: States: Unknown Family Hx - Social History Hx Alcohol Use: No Hx Substance Use: No - Immunization History Hx Tetanus Toxoid Vaccination: No Hx Influenza Vaccination: No Hx Pneumococcal Vaccination: No Review Of Systems Except As Marked, All Systems Reviewed And Found Negative. Constitutional: Negative for: Fever, Chills Cardiovascular: Negative for: Chest Pain, Palpitations Respiratory: Negative for: Cough, Shortness of Breath Neurological: Positive for: Confusion, Altered Mental Status. Negative for: Weakness, Numbness, Change in Speech, Headache, Dizziness Physical Exam - Physical Exam Appears: Well, No Acute Distress Skin: Normal Color, Warm, Dry Eye(s): bilateral: Normal Inspection, PERRL, EOMI Nose: Normal Throat: Normal Neck: Normal Cardiovascular: Rhythm Regular Respiratory: Normal Breath Sounds Gastrointestinal/Abdominal: Normal Exam Back: Normal Inspection Extremity: Normal ROM Neurological/Psych: Other (see nih) ED Course And Treatment - Laboratory Results Result Diagrams: 07/22/18 06:12 07/22/18 06:12 ECG: Interpreted By Me, Viewed By Me ECG Rhythm: Atrial Fibrillation ECG Interpretation: No Acute Changes Rate From EC O2 Sat by Pulse Oximetry: 100 Pulse Ox Interpretation: Normal - CT Scan/US Head CT Other Rad Studies (CT/US): Read By Radiologist, Radiology Report Reviewed CT/US Interpretation: Accession No. : [id number]. Patient Name / ID : IDA COMER / [id number]. Exam Date : 07/21/2018 16:27:23 ( Approved ). Study Comment : Sex / Age : M / 72Y. Creator : Tiburcio Orr MD. Dictator : Tiburcio Orr MD. Electronic Page Makeup System Operator : Stringed Instrument Assembler : Tiburcio Orr MD. Approver2 : Report Date : 07/21/2018 16:41:56. My Comment : . Date of service: 07/21/2018. PROCEDURE: CT HEAD WITHOUT CONTRAST. HISTORY: Code Stroke. COMPARISON: None available. TECHNIQUE: Axial computed tomography images were obtained through the head/brain without intravenous contrast. Radiation dose: Total exam DLP = 1170.31 mGy-cm. This CT exam was performed using one or more of the following dose reduction techniques: Automated exposure control, adjustment of the mA and/or kV according to patient size, and/or use of iterative reconstruction technique. FINDINGS: HEMORRHAGE: No intracranial hemorrhage. BRAIN: No mass effect or edema. Mild diffuse atrophy. Moderate periventricular white matter lucency with patchy and confluent deep/subcortical white matter lucency consistent with chronic microvascular ischemic change. Old left basal ganglia lacunar infarcts extending the gee radiata.. No evidence of acute infarct. VENTRICLES: Unremarkable. No hydrocephalus. CALVARIUM: Unremarkable. P ARANASAL SINUSES: Mild chronic left maxillary sinusitis. MASTOID AIR CELLS: Unremarkable as visualized. No inflammatory changes. OTHER FINDINGS: None. IMPRESSION: No evidence of acute infarct. Atrophy and chronic white matter ischemic change. 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 Findings discussed by telephone with Dr. Baumann at 4:40 p.m. on 07/21/2018. NIHSS Stroke Scale 2 - Date/Time Evaluation Performed Date Performed: 07/21/18 Time Performed: 16:14 When Was NIHSS Performed: Baseline - How Severe is the Stroke Level of Consciousness: 0=Alert LOC to Questions: 2=Neither correct LOC to commands: 0=Obeys both correctly Best Gaze: 0=Normal Visual: 0=No visual loss Facial: 0=Normal Motor Arm - Left: 0=No drift Motor Arm - Right: 0=No drift Motor Leg - Left: 0=No drift Motor Leg - Right: NA - Amputation, joint fusion Limb Ataxia: 0=Absent Sensory: 0=Normal Best Language: 2=Severe aphasia Dysarthia: 1=Mild to moderate slurring Extinction & Inattention (Neglect): 1=Partial neglect (mild [place]-attention) Score: 6 rTPA Inclusion/Exclusion - Refusal of Treatment Patient Refused Treatment: No - Inclusion Criteria for Altepase Patient is 18 years or Older: Yes The Clinical Diagnosis of Ischemic Stroke That is Causing a Potentially Disabling Neurological Deficit: Yes Time of Onset is Well Established to be Less Than 270 Minute Before Treatment Would Begin: No Risk/Benefit Discussed With Patient/Family Member Present: Yes Medical Decision Making Medical Decision Making: Plan: Blood work Urinalysis CTA head/neck Head CT CXR EKG IV fluids Disposition - Disposition Disposition: HOSPITALIZED Disposition Time: 16:00 Condition: FAIR - Clinical Impression Clinical Impression: Weakness - Scribe Statement The provider has reviewed the documentation as recorded by the Scribe KP All medical record entries made by the Scribe were at my direction and personally dictated by me. I have reviewed the chart and agree that the record accurately reflects my personal performance of the history, physical exam, medical decision making, and the department course for this patient. I have also personally directed, reviewed, and agree with the discharge instructions and disposition.
[2018-07-21 16:36] LABS: BASO % 0.6 % (0.0-2.0); EOS # 0.5 K/uL (0.0-0.7); EOS % 7.3 % (0.0-4.0); HEMOGLOBIN 14.6 g/dL (12.0-18.0); LYMPH # 1.3 K/uL (1.0-4.3); LYMPH % 17.8 % (20.0-40.0); MEAN CELL VOLUME 79.4 fL (80.0-94.0); MEAN CORPUSCULAR HGB CONC 32.7 g/dL (33.0-37.0); MEAN PLATELET VOLUME 8.6 fL (7.2-11.7); MONO # 0.6 K/uL (0.0-0.8); MONO % 8.3 % (0.0-10.0); NEUT # 4.7 K/uL (1.8-7.0); RBC 5.61 Mil/uL (4.40-5.90); RED CELL DISTRIBUTION WIDTH 17.4 % (11.5-14.5); WHITE BLOOD COUNT 7.2 K/uL (4.8-10.8)
[2018-07-21 16:44] LABS: INR 1.1; PROTHROMBIN TIME 12.3 SECONDS (9.7-12.2)
--- NOTE | 2018-07-21 16:45 | CT ---
Date of service: 07/21/2018 PROCEDURE: CT HEAD WITHOUT CONTRAST. HISTORY: Code Stroke COMPARISON: None available. TECHNIQUE: Axial computed tomography images were obtained through the head/brain without intravenous contrast. Radiation dose: Total exam DLP = 1170.31 mGy-cm. This CT exam was performed using one or more of the following dose reduction techniques: Automated exposure control, adjustment of the mA and/or kV according to patient size, and/or use of iterative reconstruction technique. FINDINGS: HEMORRHAGE: No intracranial hemorrhage. BRAIN: No mass effect or edema. Moderate patchy and confluent periventricular and deep white matter lucency consistent with microvascular ischemic change. There is an old lacunar infarct in the left basal ganglia extending into the left gee radiata. No evidence of acute infarct. VENTRICLES: Unremarkable. No hydrocephalus. CALVARIUM: Unremarkable. PARANASAL SINUSES: Minimal chronic ethmoid and left maxillary sinusitis MASTOID AIR CELLS: Unremarkable as visualized. No inflammatory changes. OTHER FINDINGS: None. IMPRESSION: No intracranial mass, hemorrhage or evidence of acute infarct. 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 Chronic white matter ischemic change. Minimal chronic paranasal sinusitis. The preliminary findings for this examination were reported by [facility] at 6:27 p.m. on 07/21/2018. There is concurrence of this report with the preliminary findings.
[2018-07-21 16:47] LABS: ALB/GLOB RATIO 1.2 (1.0-2.1); ALBUMIN 3.6 g/dL (3.5-5.0); ALT/SGPT 22 U/L (21-72); AST/SGOT 21 U/L (17-59); BLOOD UREA NITROGEN 23 mg/dL (9-20); CALCIUM 8.3 mg/dl (8.6-10.4); GFR NON-AFRICAN AMERICAN 55; HDL CHOLESTEROL 37 mg/dL (30-70)
[2018-07-21 16:58] LABS: LDL CHOLESTEROL 77 mg/dL (0-129)
[2018-07-21] MEDS ORDERED: Iodixanol 320 MG/ML 100 ML BOTTLE IV ONE (17:09)
[2018-07-21] MEDS ORDERED: Sodium Chloride 0.9% 1,000 ML ONE (17:12)
[2018-07-21] MEDS: Sodium Chloride 0.9% 1,000 ML IV SCH (17:13)
--- NOTE | 2018-07-21 17:14 | CT ---
Date of service: 07/21/2018 PROCEDURE: CT Angiography of the neck and brain with contrast HISTORY: Code stroke COMPARISON: Correlation with concurrent noncontrast CT scan brain TECHNIQUE: Contiguous axial images of the neck and brain were obtained from the level of the vertex of the skull to the superior mediastinum in the arteriographic phase of enhancement. Coronal and sagittal reformats or also generated. IV contrast dose: 100 cc Visipaque 320 Radiation dose: Total exam DLP = 690.07 mGy-cm. This CT exam was performed using one or more of the following dose reduction techniques: Automated exposure control, adjustment of the mA and/or kV according to patient size, and/or use of iterative reconstruction technique.. This study is extremely limited due to suboptimal arterial opacification possibly due to image timing mismatch following intravenous injection.. The cervical carotid and vertebral arteries are only faintly opacified and significantly obscured by dense opacification in the jugular veins that result in crossing streak and beam hardening artifact. The cerebral circulation is also only faintly opacified and poorly delineated. FINDINGS: The aortic arch is opacified of with some minor calcified atherosclerotic plaque. Dilatation of the ascending thoracic aorta measuring approximately 4.4 cm. The proximal common carotid arteries are poorly delineated as mentioned above due to significant streak and beam hardening artifact. The mid to distal of carotid arteries similarly are poorly delineated though there does appear to be small calcified plaque proximal right internal carotid artery which results in only minor narrowing estimated at approximately 30 percent. The mid to distal internal carotid arteries are poorly seen. The visualized petrous cavernous and supraclinoid segments are faintly opacified. Some minor calcified plaque both cavernous carotid segments. The supraclinoid carotid arteries are patent. There does appear to be some minor asymmetry of the A1 segments right side of which is slightly larger in caliber than the left. The distal anterior cerebral arteries are relatively symmetric so far as can be seen.. The M1 segments are patent however there is some minor asymmetry of the distal branches of the middle cerebral arteries with a paucity of branches on the right-side of. There is marked asymmetry of the vertebral arteries right-sided which is much larger in caliber than the left side of. The distal left internal carotid artery (proximal intradural segment) is not well delineated could conceivably terminate in a PICA. There are some minor calcification changes seen of the proximal right intra dural vertebral artery. Basilar artery is patent. The proximal posterior cerebral arteries are also patent however the distal branches are not well delineated. No definitive evidence of large aneurysm nor vascular malformation so far as can be seen. OTHER FINDINGS: As mentioned above, dilatation of the ascending thoracic aorta measuring approximately 4.4 cm. IMPRESSION: Extremely limited study due to injection/image timing mismatch with only faint opacification of the arterial circulation. Small plaque proximal right internal carotid artery with approximately 30 percent diameter stenosis. Mild calcified atherosclerotic plaque of both cavernous carotid siphons. There is slight asymmetry of the distal branches of the middle cerebral arteries with right-sided exhibited a paucity of vascularity compared to the left side. Clinical correlation recommended. No definitive evidence of large aneurysm nor vascular malformation.
--- NOTE | 2018-07-21 17:27 | CP.PCM.HP ---
History of Present Illness - History of Present Illness History of Present Illness: CC: HPI: Limited history due to patient's condition. HPI mostly obtained from patient's son Patient is a 72 year old with past medical history of Hypertension, Insulin Dependent Type 2 DM, Atrial Fibrillation on AC, and Hypothyroidism, who presents to the ED via ambulance. As son at bedside, patient was last seen normal at 10pm last night before bed with no acute issues or complaints. However, patient was noted by son around 2pm with slurred speech and incoherent speech while he was sitting in his wheel chair in the kitchen. Patient's son noted patient to be very confused and unable to speak in full sentences and tangential speech. As per son, patient will start with one word and the loses his train of thought or have difficulties with finding his words with addition symptoms of short term memory loss. During the encounter, patient is unable to find his words in order to answer questions and unable to recall his , year and day. In addition, when asked about what brought in to the hospital in [place], patient responds by saying his name repeatedly and not answering questions appropriately. Upon review system, patient denies any symptoms of fever, chills, nausea, vomiting, chest pain, palpitations, shortness of breath, blurry vision, dizziness, recent sickness, nausea, vomiting and abdominal pain but does admits to frontal headache. As per son at bedside, patient did not have any recent illness. Code status: Full code Emergency contact: Son (Wilbert- [phone]) and daughter (Bliotgp-[phone]) PMD: David PMHx: Hypertension, Insulin Dependent Type 2 DM, Atrial Fibrillation on AC, and Hypothyroidism, PSHx: Bilateral hip surgery, right ankle surgery FHx: Unremarkable for cardiac, CVAs, or malignancies Meds: Eliquis 5mg orally twice daily, Coreg 3.125 mg by mouth twice a day, digoxin 0.25mg orally, furosemide 40mg orally a day, Atorvastatin 20mg PO HS, flomax 0.4 mg orally, gabapentin 300 mg orally three times a day (As per EMR) All: NKDA Social Hx: Son lives with patient. Denies current or former tobacco or illicit drug use, admits to excessive alcohol use in the past but quit 12 years ago Present on Admission - Present on Admission Any Indicators Present on Admission: No Review of Systems - Constitutional Constitutional: Headache. absent: Chills, Fever - EENT Eyes: absent: Blurred Vision, Change in Vision Ears: absent: Dizziness - Cardiovascular Cardiovascular: absent: Chest Pain, Diaphoresis, Dyspnea, Lightheadedness - Respiratory Respiratory: absent: Dyspnea - Gastrointestinal Gastrointestinal: absent: Abdominal Pain, Nausea, Vomiting - Musculoskeletal Musculoskeletal: absent: Muscle Cramps, Numbness - Neurological Neurological: Headaches. absent: Abnormal Movements, Confusion, Dizziness - Endocrine Endocrine: absent: Fatigue, Palpitations Past Patient History - Past Medical History & Family History Past Medical History?: Yes - Past Social History Smoking Status: Never Smoked - CARDIAC Hx Atrial Fibrillation: Yes Hx Hypertension: Yes - ENDOCRINE/METABOLIC Hx Endocrine Disorders: Yes Hx Diabetes Mellitus Type 1: Yes - MUSCULOSKELETAL/RHEUMATOLOGICAL Hx Falls: Yes - GENITOURINARY/GYNECOLOGICAL Hx Prostate Problems: Yes - PSYCHIATRIC Hx Substance Use: No - SURGICAL HISTORY Hx Surgeries: Yes Hx Orthopedic Surgery: Yes (R hip, left ankle) - ANESTHESIA Hx Anesthesia: Yes Hx Anesthesia Reactions: No Hx Malignant Hyperthermia: No Meds Allergies/Adverse Reactions: Allergies Allergy/AdvReac Type Severity Reaction Status Date / Time No Known Allergies Allergy Verified 07/21/18 16:26 Physical Exam - Constitutional Appears: No Acute Distress - Head Exam Head Exam: ATRAUMATIC - Eye Exam Eye Exam: EOMI, PERRL - ENT Exam ENT Exam: Mucous Membranes Moist - Respiratory Exam Respiratory Exam: Clear to Auscultation Bilateral, NORMAL BREATHING PATTERN. absent: Prolonged Expiratory Phase, Rhonchi, Wheezes, Respiratory Distress - Cardiovascular Exam Cardiovascular Exam: REGULAR RHYTHM, +S1, +S2 - GI/Abdominal Exam GI & Abdominal Exam: Normal Bowel Sounds, Soft. absent: Distended, Firm, Guarding, Tenderness - Extremities Exam Extremities exam: Positive for: normal inspection. Negative for: calf tenderness, pedal edema Additional comments: Hip replacement scar bilaterally - Neurological Exam Neurological exam: Alert, Motor Sensory Deficit, Oriented x3 Additional comments: Unable to evaluate gait No pronator drift noted Follows commands Severe dysphagia Difficult to answer questions Alert but not oriented Babinski sign negative Admits to decreased sensation on the left side of his face and bilateral arms and legs - Psychiatric Exam Psychiatric exam: Normal Affect - Skin Skin Exam: Normal Color Results - Vital Signs Recent Vital Signs: Last Vital Signs Temp 98.7 F 07/21/18 16:14 Pulse 62 07/21/18 16:57 Resp 16 07/21/18 16:57 BP 160/69 H 07/21/18 16:57 Pulse Ox 100 07/21/18 16:57 - Labs Result Diagrams: 07/21/18 16:29 07/21/18 16:29 Labs: Laboratory Results - last 24 hr 07/21/18 07/21/18 07/21/18 16:29 16:29 16:29 WBC 7.2 RBC 5.61 Hgb 14.6 Hct 44.6 MCV 79.4 L MCH 26.0 L MCHC 32.7 L RDW 17.4 H Plt Count 149 MPV 8.6 Neut % (Auto) 66.0 Lymph % (Auto) 17.8 L [place] % (Auto) 8.3 Eos % (Auto) 7.3 H Baso % (Auto) 0.6 Neut # (Auto) 4.7 Lymph # (Auto) 1.3 [place] # (Auto) 0.6 Eos # (Auto) 0.5 Baso # (Auto) 0.0 PT 12.3 H INR 1.1 APTT 31 Sodium 135 Potassium 4.2 Chloride 98 Carbon Dioxide 25 Anion Gap 16 BUN 23 H Creatinine 1.3 Est GFR ( Amer) > 60 Est GFR (Non-Af Amer) 55 Random Glucose 277 H Hemoglobin A1c Calcium 8.3 L Total Bilirubin 0.6 AST 21 ALT 22 Alkaline Phosphatase 68 Troponin I 0.0260 Total Protein 6.7 Albumin 3.6 Globulin 3.1 Albumin/Globulin Ratio 1.2 Triglycerides 228 H D Cholesterol 137 LDL Cholesterol Direct 77 HDL Cholesterol 37 Blood Type Antibody Screen 07/21/18 07/21/18 16:29 16:38 WBC RBC Hgb Hct MCV MCH MCHC RDW Plt Count MPV Neut % (Auto) Lymph % (Auto) [place] % (Auto) Eos % (Auto) Baso % (Auto) Neut # (Auto) Lymph # (Auto) [place] # (Auto) Eos # (Auto) Baso # (Auto) PT INR APTT Sodium Potassium Chloride Carbon Dioxide Anion Gap BUN Creatinine Est GFR ( Amer) Est GFR (Non-Af Amer) Random Glucose Hemoglobin A1c 11.6 H D Calcium Total Bilirubin AST ALT Alkaline Phosphatase Troponin I Total Protein Albumin Globulin Albumin/Globulin Ratio Triglycerides Cholesterol LDL Cholesterol Direct HDL Cholesterol Blood Type A POSITIVE Antibody Screen Negative Assessment & Plan (1) Altered mental status Assessment and Plan: Rule out CVA Consultation: - Neurology, Dr. Tafoya * Management as per recommendation * Permissive hypertension, do not treat blood pressure less than 220/110 (may start to normalize 48-hours after symptom onset). Imaging: Head CT: No intracranial hemorrhage. No evidence of acute infarct. Atrophy and Chronic white matter ischemic change. 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 Head/Neck CTA: Extremely limited study due to injection/image timing mismatch with only faint opacification of the arterial circulation. Small plaque proximal right internal carotid artery with approximately 30 percent diameter stenosis. Mild calcified atherosclerotic plaque of both cavernous carotid siphons. There is slight asymmetry of the distal branches of the middle cerebral arteries with right-sided exhibited a paucity of vascularity compared to the left side. Clinical correlation recommended. No definitive evidence of large aneurysm nor vascular malformation. Echo (03/19/18): LV mildly dilated, mild concentric LV, EF- 55-60%, moderate aortic regurg, mitral regurg trace, aortic root mildly enlarged at 4.8 F/u Carotid dopplers Please follow up with MRI department to confirm if patient is eligible due to hx of multiple bilateral hip replacements Labs: Lipid panel: - TGL: 228, Chol: 137, LDL:77 and HDL:37 - HgbA1C: 11.6 - F/u TSH and Free T4 - Troponin negative X1 - F/u UA and Urine culture and blood culture - F/u folate, vitamin B12, ESR, CRP, DARI and Vitamin D levels Medications: * ASA 81mg PO daily * Crestor 10mg PO HS * NS @ 100mls/hr Status: Acute (2) Diabetes mellitus Assessment and Plan: HgbA1C: 11.6 ISS- High dose Accuchecks Hypoglycemia protocol Liquid diet with low consistent carbohydrate Status: Acute (3) History of atrial fibrillation Assessment and Plan: Continue home medication: * Eliquis 5mg PO BID * Digoxin 0.25mg Po daily Status: Acute (4) Urinary retention Assessment and Plan: Continue home medication: * Flomax 0.4mg PO daily Status: Acute (5) Hypertension Assessment and Plan: Home medication on hold As per neurology's recommendation: Permissive hypertension, do not treat blood pressure less than 220/110 (may start to normalize 48-hours after symptom onset) Status: Acute (6) Prophylactic measure Assessment and Plan: GI: Not indicated DVT: SCDs, eliquis 5mg PO BID All plans and management discussed with Dr. Hernandez Status: Acute
[2018-07-21 18:25] LABS: SQUAMOUS EPITHIAL < 1 /hpf (0-5); URINE BACTERIA OCC (<OCC); URINE BILIRUBIN NEGATIVE (NEGATIVE); URINE BLOOD 2+ (NEGATIVE); URINE CLARITY Clear (Clear); URINE COLOR Yellow (YELLOW); URINE GLUCOSE (UA) 3+ mg/dL (Normal); URINE LEUKOCYTE ESTERASE NEG Leu/uL (Negative); URINE PROTEIN 2+ mg/dL (NEGATIVE)
--- NOTE | 2018-07-21 18:28 | CP.PCM.CON ---
History of Present Illness - History of Present Illness History of Present Illness: Neurology Consultation Note: Mr. Georges is a 72-year-old man, referred to me by Dr. Baumann, with a past medical history of HTN, DM, atrial fibrillation (on Eliquis), who presented to the ED after his son noted that he was having speech difficulty. The last time the patient was normal was last night. He was not a candidate for IV tPA due to being on Eliquis and being well outside the time window for IV tPA. Non- contrast CT scan of the head showed some hypodensity in the left frontal lobe. CTA was poor quality, but there were no obvious LVOs noted. Review of Systems - Review of Systems Systems not reviewed;Unavailable: Altered Mental Status Past Patient History - Past Medical History & Family History Past Medical History?: Yes - Past Social History Smoking Status: Never Smoked - CARDIAC Hx Atrial Fibrillation: Yes Hx Hypertension: Yes - ENDOCRINE/METABOLIC Hx Endocrine Disorders: Yes Hx Diabetes Mellitus Type 1: Yes - MUSCULOSKELETAL/RHEUMATOLOGICAL Hx Falls: Yes - GENITOURINARY/GYNECOLOGICAL Hx Prostate Problems: Yes - PSYCHIATRIC Hx Substance Use: No - SURGICAL HISTORY Hx Surgeries: Yes Hx Orthopedic Surgery: Yes (R hip, left ankle) - ANESTHESIA Hx Anesthesia: Yes Hx Anesthesia Reactions: No Hx Malignant Hyperthermia: No Meds Allergies/Adverse Reactions: Allergies Allergy/AdvReac Type Severity Reaction Status Date / Time No Known Allergies Allergy Verified 07/21/18 16:26 - Medications Medications: Current Medications Aspirin (Aspirin Supp) 300 mg [place] DAILY [facility] Last Admin: 07/21/18 17:41 Dose: 300 mg Sodium Chloride (Sodium Chloride 0.9%) 1,000 mls @ 100 mls/hr IV .Q10H [facility] Last Admin: 07/21/18 17:13 Dose: 100 mls/hr Physical Exam - Constitutional Appears: Well - Head Exam Head Exam: ATRAUMATIC, NORMAL INSPECTION, NORMOCEPHALIC - Eye Exam Eye Exam: EOMI, Normal appearance, PERRL Pupil Exam: NORMAL ACCOMODATION, PERRL - ENT Exam ENT Exam: Mucous Membranes Moist, Normal Exam - Neck Exam Neck exam: Positive for: Normal Inspection - Respiratory Exam Respiratory Exam: Clear to Auscultation Bilateral, NORMAL BREATHING PATTERN - Cardiovascular Exam Cardiovascular Exam: +S1, +S2 - GI/Abdominal Exam GI & Abdominal Exam: Normal Bowel Sounds, Soft. absent: Tenderness - Rectal Exam Rectal Exam: Deferred - Extremities Exam Extremities exam: Positive for: normal inspection - Back Exam Back exam: NORMAL INSPECTION - Neurological Exam Neurological exam: Alert, CN II-XII Intact, Normal Gait, Reflexes Normal Additional comments: Aphasic with difficulty in speech production. Comprehension appears intact. He follows commands appropriately. NIHSS = 6 - Psychiatric Exam Psychiatric exam: Normal Affect, Normal Mood - Skin Skin Exam: Dry, Intact, Normal Color, Warm Results - Vital Signs Recent Vital Signs: Last Vital Signs Temp 98.7 F 07/21/18 16:14 Pulse 62 07/21/18 16:57 Resp 16 07/21/18 16:57 BP 160/69 H 07/21/18 16:57 Pulse Ox 100 07/21/18 16:57 - Labs Result Diagrams: 07/21/18 16:29 07/21/18 16:29 Labs: Laboratory Results - last 24 hr 07/21/18 07/21/18 07/21/18 16:29 16:29 16:29 WBC 7.2 RBC 5.61 Hgb 14.6 Hct 44.6 MCV 79.4 L MCH 26.0 L MCHC 32.7 L RDW 17.4 H Plt Count 149 MPV 8.6 Neut % (Auto) 66.0 Lymph % (Auto) 17.8 L [place] % (Auto) 8.3 Eos % (Auto) 7.3 H Baso % (Auto) 0.6 Neut # (Auto) 4.7 Lymph # (Auto) 1.3 [place] # (Auto) 0.6 Eos # (Auto) 0.5 Baso # (Auto) 0.0 PT 12.3 H INR 1.1 APTT 31 Sodium 135 Potassium 4.2 Chloride 98 Carbon Dioxide 25 Anion Gap 16 BUN 23 H Creatinine 1.3 Est GFR ( Amer) > 60 Est GFR (Non-Af Amer) 55 Random Glucose 277 H Hemoglobin A1c Calcium 8.3 L Total Bilirubin 0.6 AST 21 ALT 22 Alkaline Phosphatase 68 Troponin I 0.0260 Total Protein 6.7 Albumin 3.6 Globulin 3.1 Albumin/Globulin Ratio 1.2 Triglycerides 228 H D Cholesterol 137 LDL Cholesterol Direct 77 HDL Cholesterol 37 Digoxin Blood Type Antibody Screen 07/21/18 07/21/18 07/21/18 16:29 16:38 17:22 WBC RBC Hgb Hct MCV MCH MCHC RDW Plt Count MPV Neut % (Auto) Lymph % (Auto) [place] % (Auto) Eos % (Auto) Baso % (Auto) Neut # (Auto) Lymph # (Auto) [place] # (Auto) Eos # (Auto) Baso # (Auto) PT INR APTT Sodium Potassium Chloride Carbon Dioxide Anion Gap BUN Creatinine Est GFR ( Amer) Est GFR (Non-Af Amer) Random Glucose Hemoglobin A1c 11.6 H D Calcium Total Bilirubin AST ALT Alkaline Phosphatase Troponin I Total Protein Albumin Globulin Albumin/Globulin Ratio Triglycerides Cholesterol LDL Cholesterol Direct HDL Cholesterol Digoxin 1.0 Blood Type A POSITIVE Antibody Screen Negative Assessment & Plan - Assessment and Plan (Free Text) Assessment: Mr. Georges is a 72-year-old man who presents with symptoms of a distal left M2 occlusion likely due to atrial fibrillation. He is aphasic and has an NIHSS of 6. He is not a candidate for IV tPA or thrombectomy. I recommend the followin. Telemetry. 2. MRI Brain without contrast and MRA head/neck without contrast. 3. Carotid ultrasounds bilaterally. 4. Check hemoglobin A-1 C, lipid panel, ESR, CRP, DARI, B12, folate, TSH, vitamin D levels. 5. Aspirin 81 mg now and continue Eliquis 5 mg BID 6. Q 2 hour neuro-checks. 7. Statin for goal LDL less than 70. 8. Permissive hypertension, do not treat blood pressure less than 220/110 (may start to normalize 48-hours after symptom onset). 9. IV fluids normal saline at 100 mL per hour. Please do not hesitate to call back with any new developments, data updates or questions.
[2018-07-21] MEDS ORDERED: Glucagon Recombinant 1 mg Inj IM PRN (19:15)
[2018-07-21] MEDS ORDERED: Dextrose 50% SYRINGE Inj (50 ml) IV PRN (19:15)
[2018-07-21 21:52] LABS: FOLATE 17.5 ng/mL
[2018-07-21] MEDS: (Novolog) Insulin Aspart, Recombinant 100 u/ml 10 ml vial SC SCH (22:25)
[2018-07-22] MEDS: Sodium Chloride 0.9% 1,000 ML IV SCH ×3 (01:43→22:38)
[2018-07-22 06:15] LABS: BASO # 0.1 K/uL (0.0-0.2); EOS # 0.7 K/uL (0.0-0.7); EOS % 8.2 % (0.0-4.0); HEMOGLOBIN 14.2 g/dL (12.0-18.0); LYMPH # 1.9 K/uL (1.0-4.3); LYMPH % 21.7 % (20.0-40.0); MEAN CELL VOLUME 79.4 fL (80.0-94.0); MEAN CORPUSCULAR HEMOGLOBIN 26.5 pg (27.0-31.0); MEAN CORPUSCULAR HGB CONC 33.3 g/dL (33.0-37.0); MEAN PLATELET VOLUME 8.6 fL (7.2-11.7); MONO # 0.7 K/uL (0.0-0.8); MONO % 7.5 % (0.0-10.0); NEUT # 5.5 K/uL (1.8-7.0); NEUT % 61.6 % (50.0-75.0); RBC 5.37 Mil/uL (4.40-5.90); RED CELL DISTRIBUTION WIDTH 17.1 % (11.5-14.5)
[2018-07-22 06:38] LABS: ALBUMIN 3.3 g/dL (3.5-5.0); ALT/SGPT 21 U/L (21-72); AST/SGOT 25 U/L (17-59); BLOOD UREA NITROGEN 17 mg/dL (9-20); CALCIUM 8.3 mg/dl (8.6-10.4); GFR NON-AFRICAN AMERICAN > 60
[2018-07-22] MEDS: (Novolog) Insulin Aspart, Recombinant 100 u/ml 10 ml vial SC SCH ×4 (07:45→22:25)
--- NOTE | 2018-07-22 09:13 | CP.PCM.PN ---
Subjective - Date & Time of Evaluation Date of Evaluation: 07/22/18 Time of Evaluation: 09:13 - Subjective Subjective: PGY-1, Medicine progress note for Dr. Hernandez Pt was seen and examined at bedside. Pt's expressive aphasia has resolved, pt is resting comfortably. He has no comlaints at this time. Pt denies fever, chills, chest pain, sob, abdominal pain, n/v/d, numbness or tingling, headache, dizziness, visual disturbances, focal weakness, fatigue. Objective - Vital Signs/Intake and Output Vital Signs (last 24 hours): Temp Pulse Resp BP Pulse Ox 97.5 F L 55 L 12 152/86 H 100 07/22/18 06:33 07/22/18 06:33 07/22/18 06:33 07/22/18 06:33 07/22/18 06:33 - Medications Medications: Current Medications Apixaban (Eliquis) 5 mg PO BID [facility] Aspirin (Aspirin Supp) 300 mg [place] DAILY [facility] Last Admin: 07/21/18 17:41 Dose: 300 mg Aspirin (Aspirin Chewable) 81 mg PO DAILY [facility] Dextrose (Dextrose 50% Inj) 0 ml IV STAT PRN; Protocol PRN Reason: Hypoglycemia Protocol Dextrose (Glutose 15) 0 gm PO ONCE PRN; Protocol PRN Reason: Hypoglycemia Protocol Digoxin (Lanoxin) 0.25 mg PO DAILY@1800 [facility] Glucagon (Glucagen Diagnostic Kit) 0 mg IM STAT PRN; Protocol PRN Reason: Hypoglycemia Protocol Sodium Chloride (Sodium Chloride 0.9%) 1,000 mls @ 100 mls/hr IV .Q10H [facility] Last Admin: 07/22/18 01:43 Dose: Not Given Dextrose (Dextrose 5% In Water 1000 Ml) 1,000 mls @ 0 mls/hr IV .Q0M PRN; Protocol PRN Reason: Hypoglycemia Protocol Insulin Aspart (Novolog) 0 unit SC ACHS [facility]; Protocol Last Admin: 07/22/18 07:45 Dose: Not Given Rosuvastatin Calcium (Crestor) 10 mg PO HS [facility] Last Admin: 07/21/18 21:35 Dose: 10 mg Tamsulosin HCl (Flomax) 0.4 mg PO DAILY [facility] - Labs Labs: 07/22/18 06:12 07/22/18 06:12 PT 12.3 SECONDS (9.7-12.2) H 07/21/18 16:29 INR 1.1 07/21/18 16:29 APTT 31 SECONDS (21-34) 07/21/18 16:29 - Constitutional Appears: Non-toxic, No Acute Distress - Head Exam Head Exam: ATRAUMATIC, NORMAL INSPECTION - Eye Exam Eye Exam: EOMI, PERRL - ENT Exam ENT Exam: Mucous Membranes Moist - Respiratory Exam Respiratory Exam: Clear to Ausculation Bilateral - Cardiovascular Exam Cardiovascular Exam: REGULAR RHYTHM, +S1, +S2 - GI/Abdominal Exam GI & Abdominal Exam: Soft, Normal Bowel Sounds. absent: Distended, Firm, Guarding, Tenderness - Extremities Exam Extremities Exam: Full ROM, Normal Capillary Refill, Normal Inspection - Back Exam Back Exam: NORMAL INSPECTION - Neurological Exam Neurological Exam: Alert, Awake, CN II-XII Intact, Oriented x3. absent: Motor Sensory Deficit Neuro motor strength exam: Left Upper Extremity: 5, Right Upper Extremity: 5, Left Lower Extremity: 5, Right Lower Extremity: 5 Additional comments: Pt is speaking clearly, and answering questions appropriately - Psychiatric Exam Psychiatric exam: Normal Affect, Normal Mood - Skin Skin Exam: Dry, Normal Color, Warm Assessment and Plan - Assessment and Plan (Free Text) Assessment: Patient is a 72 year old with past medical history of Hypertension, Insulin Dependent Type 2 DM, Atrial Fibrillation on AC, and Hypothyroidism, who presents to the ED via ambulance for evaluation of dysarthria, expresive aphasia and decreased sensation to the left side of his body. Now resolved. Plan: Altered mental status, now resolved Head CT 07/21: No intracranial hemorrhage. No evidence of acute infarct. Atrophy and Chronic white matter ischemic change. 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 Head/Neck CTA 07/21: Extremely limited study due to injection/image timing mismatch with only faint opacification of the arterial circulation. Small plaque proximal right internal carotid artery with approximately 30 percent diameter stenosis. Mild calcified atherosclerotic plaque of both cavernous carotid siphons. There is slight asymmetry of the distal branches of the middle cerebral arteries with right-sided exhibited a paucity of vascularity compared to the left side. Clinical correlation recommended. No definitive evidence of large aneurysm nor vascular malformation. Brain MRI 07/22: No evidence of diffusion restriction to suggest acute or subacute infarct. [place]cut-tg-cyvjdfrh atrophy and white matter changes suggestive of chronic microvascular ischemic disease Brain MRA 07/22: Limited motion degraded study.There is nonvisualization of the distal left vertebral artery possibly due to very small caliber. The left vertebral artery may in fact terminate in a left-sided capital PICA. Neck MRA 07/22: Limited motion degraded study. The common carotid arteries, carotid bifurcations and internal carotid arteries are patent. There is marked asymmetry of the vertebral arteries right-sided which is larger in caliber/more dominant than the left side. Left distal end vertebral artery may in fact terminate in a left-sided PICA. Remaining anterior circulation and distal branches are patent. Carotid doppler 07/22: Prelim shows mild disease bilaterally. Will f/u with official report Troponin negative X1 Folate, vitamin B12, ESR is normal CRP is 10.60 Neurology, Dr. Tafoya, consulted 07/22, Dr. Garrido reports stroke workup may be stopped now. EEG Will f/u with EEG F/u UA and Urine culture and blood culture f/u DARI Echo (03/19/18): LV mildly dilated, mild concentric LV, EF- 55-60%, moderate aortic regurg, mitral regurg trace, aortic root mildly enlarged at 4.8 Hypertriglyceridemia T, Chol: 137, LDL:77 and HDL:37 Crestor 10mg PO HS Vitamin D deficiency Vitamin D is low at 15.6 Will start on Vit D 50,000 iu PO once weekly Diabetes mellitus HgbA1C: 11.6 ISS- High dose Accuchecks Hypoglycemia protocol Liquid diet with low consistent carbohydrate TSH and Free T4 is WNL History of atrial fibrillation Continue home medication: * Eliquis 5mg PO BID * Digoxin 0.25mg Po daily Urinary retention Continue home medication: * Flomax 0.4mg PO daily Hx of Hypertension Home medication on hold As per neurology's recommendation: Permissive hypertension, do not treat blood pressure less than 220/110 (may start to normalize 48-hours after symptom onset) ASA 81mg PO daily PPX GI: Not indicated DVT: SCDs, eliquis 5mg PO BID Case discussed with Dr. Hernandez, all medical management as per Dr. David Abrams PGY-1
--- NOTE | 2018-07-22 09:33 | RAD ---
Date of service: 07/21/2018 HISTORY: CODE STROKE COMPARISON: Comparison chest dated 03/19/2018. FINDINGS: The LUNGS: Poor inspiration with low lung volumes, crowded bronchovascular markings and mild bibasilar atelectasis. PLEURA: No significant pleural effusion identified, no pneumothorax apparent. CARDIOVASCULAR: Aortic atherosclerotic calcification present. Cardiomegaly.. OSSEOUS STRUCTURES: No significant abnormalities. VISUALIZED UPPER ABDOMEN: Normal. OTHER FINDINGS: None. IMPRESSION: Poor inspiration with low lung volumes, crowded bronchovascular markings and mild bibasilar atelectasis.
[2018-07-22] MEDS ORDERED: (Novolog) Insulin Aspart, Recombinant 100 u/ml 10 ml vial ONE (12:31)
--- NOTE | 2018-07-22 12:43 | MRI ---
Date of service: 07/22/2018 PROCEDURE: MRI BRAIN WITHOUT CONTRAST HISTORY: code stroke 07/21 COMPARISON: Comparison is made to the previous CT and CTA of the head dated 07/21/2018 TECHNIQUE: Multiplanar, multisequence MR images of the brain were obtained without intravenous contrast enhancement. FINDINGS: HEMORRHAGE: None DWI: No evidence of an acute or early subacute infarction. BRAIN PARENCHYMA: There is a focal encephalomalacia at the gee radiata suggestive of old small infarct. Cwrq-au-jqgorddm atrophy and moderate white matter changes suggestive of chronic microvascular ischemic disease. VENTRICLES: Unremarkable. No hydrocephalus. CRANIUM: Unremarkable. ORBITS: Grossly unremarkable. PARANASAL SINUSES/MASTOIDS: Mild mucosal thickening noted in the maxillary and ethmoid sinuses. VASCULAR SYSTEM: Skull base flow voids intact. OTHER FINDINGS: None. IMPRESSION: No evidence of diffusion restriction to suggest acute or subacute infarct. Hqvw-nu-stibmkdc atrophy and white matter changes suggestive of chronic microvascular ischemic disease.
--- NOTE | 2018-07-22 15:27 | CP.PCM.PN ---
<Brando Mattson - Last Filed: 07/22/18 15:16> Subjective - Date & Time of Evaluation Date of Evaluation: 07/22/18 Time of Evaluation: 12:25 - Subjective Subjective: PGY2 Neuro Note for Dr. Mcneill Patient seen and examined at bedside this morning. Patient is speaking slowly but is otherwise feeling well. Denies any complaints at this time. Objective - Vital Signs/Intake and Output Vital Signs (last 24 hours): Temp Pulse Resp BP Pulse Ox 97.5 F L 61 14 128/68 98 07/22/18 06:33 07/22/18 12:44 07/22/18 12:44 07/22/18 12:44 07/22/18 12:44 - Medications Medications: Current Medications Apixaban (Eliquis) 5 mg PO BID [facility] Last Admin: 07/22/18 10:37 Dose: 5 mg Aspirin (Aspirin Chewable) 81 mg PO DAILY [facility] Last Admin: 07/22/18 10:37 Dose: 81 mg Dextrose (Dextrose 50% Inj) 0 ml IV STAT PRN; Protocol PRN Reason: Hypoglycemia Protocol Dextrose (Glutose 15) 0 gm PO ONCE PRN; Protocol PRN Reason: Hypoglycemia Protocol Digoxin (Lanoxin) 0.25 mg PO DAILY@1800 [facility] Glucagon (Glucagen Diagnostic Kit) 0 mg IM STAT PRN; Protocol PRN Reason: Hypoglycemia Protocol Sodium Chloride (Sodium Chloride 0.9%) 1,000 mls @ 100 mls/hr IV .Q10H [facility] Last Admin: 07/22/18 12:47 Dose: 100 mls/hr Dextrose (Dextrose 5% In Water 1000 Ml) 1,000 mls @ 0 mls/hr IV .Q0M PRN; Protocol PRN Reason: Hypoglycemia Protocol Insulin Aspart (Novolog) 0 unit [place] ACHS [facility]; Protocol Last Admin: 07/22/18 11:40 Dose: Not Given Rosuvastatin Calcium (Crestor) 10 mg PO HS [facility] Last Admin: 07/22/18 10:27 Dose: 10 mg Tamsulosin HCl (Flomax) 0.4 mg PO DAILY [facility] Last Admin: 07/22/18 10:37 Dose: 0.4 mg - Labs Labs: 07/22/18 06:12 07/22/18 06:12 PT 12.3 SECONDS (9.7-12.2) H 07/21/18 16:29 INR 1.1 07/21/18 16:29 APTT 31 SECONDS (21-34) 07/21/18 16:29 - Constitutional Appears: Well, No Acute Distress - Head Exam Head Exam: ATRAUMATIC, NORMOCEPHALIC - Eye Exam Eye Exam: EOMI, Normal appearance - ENT Exam ENT Exam: Mucous Membranes Moist - Respiratory Exam Respiratory Exam: NORMAL BREATHING PATTERN. absent: Accessory Muscle Use - Neurological Exam Neurological Exam: Alert, Awake, CN II-XII Intact, Oriented x3 Additional comments: Mild pronator drift on right. Slowed speech, but no difficulty with repetition or naming. comprehension intact. Follows commands appropriately. - Psychiatric Exam Psychiatric exam: Normal Affect, Normal Mood - Skin Skin Exam: Dry, Normal Color, Warm Assessment and Plan - Assessment and Plan (Free Text) Plan: TIA Brain MRI 07/22/18: No evidence of diffusion restriction to suggest acute or subacute infarct. Apqe-mg-vweqsvkv atrophy and white matter changes suggestive of chronic microvascular ischemic disease. Head CT 07/21/18: No intracranial mass, hemorrhage or evidence of acute infarct. 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 Chronic white matter ischemic change. Minimal chronic paranasal sinusitis. Head and Neck CTA 07/21/18: Extremely limited study due to injection/image timing mismatch with only faint opacification of the arterial circulation. Small plaque proximal right internal carotid artery with approximately 30 percent diameter stenosis. Mild calcified atherosclerotic plaque of both cavernous carotid siphons. There is slight asymmetry of the distal branches of the middle cerebral arteries with right-sided exhibited a paucity of vascularity compared to the left side. Clinical correlation recommended. No definitive evidence of large aneurysm nor vascular malformation. Patient had sympotoms consistent with distal left M2 occlusion likely 2/2 afib. His speech is improving with comprehension intact. 1. Telemetry. 2. MRA head/neck without contrast pending 3. Carotid ultrasounds bilaterally. 4. Aspirin 81 mg now and continue Eliquis 5 mg BID Case discussed with Dr. Hema Mattson PGY2 <Marychuy Mcneill - Last Filed: 07/22/18 16:53> Objective - Vital Signs/Intake and Output Vital Signs (last 24 hours): Temp Pulse Resp BP Pulse Ox 97.5 F L 61 14 128/68 98 07/22/18 06:33 07/22/18 12:44 07/22/18 12:44 07/22/18 12:44 07/22/18 12:44 - Medications Medications: Current Medications Apixaban (Eliquis) 5 mg PO BID [facility] Last Admin: 07/22/18 10:37 Dose: 5 mg Aspirin (Aspirin Chewable) 81 mg PO DAILY [facility] Last Admin: 07/22/18 10:37 Dose: 81 mg Dextrose (Dextrose 50% Inj) 0 ml IV STAT PRN; Protocol PRN Reason: Hypoglycemia Protocol Dextrose (Glutose 15) 0 gm PO ONCE PRN; Protocol PRN Reason: Hypoglycemia Protocol Digoxin (Lanoxin) 0.25 mg PO DAILY@1800 [facility] Glucagon (Glucagen Diagnostic Kit) 0 mg IM STAT PRN; Protocol PRN Reason: Hypoglycemia Protocol Sodium Chloride (Sodium Chloride 0.9%) 1,000 mls @ 100 mls/hr IV .Q10H [facility] Last Admin: 07/22/18 12:47 Dose: 100 mls/hr Dextrose (Dextrose 5% In Water 1000 Ml) 1,000 mls @ 0 mls/hr IV .Q0M PRN; Protocol PRN Reason: Hypoglycemia Protocol Insulin Aspart (Novolog) 0 unit [place] ACHS [facility]; Protocol Last Admin: 07/22/18 11:40 Dose: Not Given Rosuvastatin Calcium (Crestor) 10 mg PO HS [facility] Last Admin: 07/22/18 10:27 Dose: 10 mg Tamsulosin HCl (Flomax) 0.4 mg PO DAILY [facility] Last Admin: 07/22/18 10:37 Dose: 0.4 mg - Labs Labs: 07/22/18 06:12 07/22/18 06:12 PT 12.3 SECONDS (9.7-12.2) H 07/21/18 16:29 INR 1.1 07/21/18 16:29 APTT 31 SECONDS (21-34) 07/21/18 16:29 Assessment and Plan - Assessment and Plan (Free Text) Assessment: All medical record entries made by the resident were at my direction and personally dictated by me. I have reviewed the chart and agree that the record accurately reflects my personal performance of the history, physical exam, medical decision making, and the department course for this patient. I have also personally directed, reviewed, and agree with the discharge instructions and disposition. MRI BRain and MRA brain findings reviewed: no stroke acute but old stroke noted on MRI. PLan; 1. stroke workup may be stopped now. 2. EEG Thankyou Dr. mcneill
--- NOTE | 2018-07-22 15:35 | MRI ---
Date of service: 07/22/2018 PROCEDURE: MR Angiography of the neck without contrast HISTORY: Code stroke. COMPARISON: Correlation made with CTA of the neck and brain 07/21/2018 TECHNIQUE: 3D and 2D [id number] angiography of the neck was performed. Rotating maximum intensity projection images of the cervical carotid and vertebral arteries were generated. The origins of the common carotid arteries were not visualized, which is a limitation inherent to the non-contrast time of flight technique.. Note that the study is limited particularly the 3D sequence which exhibits motion/stacking type artifact. There is also motion artifact limiting the 2D sequences. FINDINGS: The common carotid arteries appear patent. Motion artifact occurs at the carotid bifurcations limiting fine detail. No occlusion or significant stenosis. The distal internal carotid arteries including the petrous and proximal cavernous carotid arteries are patent as well. There is marked asymmetry of the vertebral arteries right-sided which is much larger in caliber/more dominant than the left side. The distal left vertebral artery may in fact terminate in a left-sided PICA. OTHER FINDINGS: None. IMPRESSION: Limited motion degraded study. The common carotid arteries, carotid bifurcations and internal carotid arteries are patent. There is marked asymmetry of the vertebral arteries right-sided which is larger in caliber/more dominant than the left side. Left distal end vertebral artery may in fact terminate in a left-sided PICA..
--- NOTE | 2018-07-22 15:40 | MRI ---
Date of service: 07/22/2018 PROCEDURE: Magnetic Resonance Angiography Brain HISTORY: code stroke COMPARISON: None available. TECHNIQUE: 3D time of flight MR angiography of the intracranial arteries was performed. Rotating maximum intensity projection images were generated. FINDINGS: INTERNAL CAROTID ARTERIES: The distal internal carotid arteries including the petrous segments are patent. Motion artifact significantly obscures the cavernous segments although both cavernous segments appeared patent as well. ANTERIOR CEREBRAL ARTERIES: The A1 and A2 segments appear patent. MIDDLE CEREBRAL ARTERIES: The the proximal middle cerebral arteries are patent. The distal branches are patent though not well delineated due to significant motion artifact POSTERIOR CIRCULATION: Note that the right vertebral artery is visualized and appears widely patent. Distal left vertebral artery is not seen on this exam likely due to very small caliber which could in fact terminate in a left-sided PICA.. Basilar artery and both posterior cerebral arteries appear patent as well. ANEURYSM/ VASCULAR MALFORMATIONS: No definitive large aneurysm nor vascular malformation. OTHER FINDINGS: None. IMPRESSION: Limited motion degraded study.. There is nonvisualization of the distal left vertebral artery possibly due to very small caliber. The left vertebral artery may in fact terminate in a left-sided capital PICA. Remaining anterior circulation and distal branches are patent.
--- NOTE | 2018-07-22 15:47 | RAD ---
Date of service: 07/22/2018 PROCEDURE: Right Foot Radiographs. HISTORY: r/o hardware, pt to undergo MRI COMPARISON: None. FINDINGS: BONES: Extensive orthopedic hardware noted. Tibial plate with transverse screws. Calcaneal screw. Likely prior arthrodesis. No acute fracture. Hammertoe deformity of the 2nd 3rd and 4th digits. JOINTS: Normal. SOFT TISSUES: Normal. OTHER FINDINGS: None. IMPRESSION: Extensive orthopedic hardware. No acute fracture.
--- NOTE | 2018-07-22 15:49 | RAD ---
Date of service: 07/22/2018 PROCEDURE: Radiographs of the right tibia and fibula. HISTORY: r/o hardware, pt to undergo MRI COMPARISON: None available TECHNIQUE: AP and lateral radiographs FINDINGS: BONES: There is a tibial medullary eduarda. There is an anterior distal tibial plate with transverse screws. There is a trans calcaneal screw. There is likely prior ankle arthrodesis. There is no acute fracture. The hardware appears grossly intact. The distal fibula has likely been surgically resected. There are small ossific densities seen in the region of the expected fibular head. JOINT SPACES: Unremarkable. OTHER FINDINGS: None. IMPRESSION: Status post arthrodesis at ankle. Resection of distal fibula. No acute fracture identified.
[2018-07-22 17:18] VITALS: RESP 20
[2018-07-22] MEDS ORDERED: Ergocalciferol 50,000 Intl Units Cap PO SCH ×2 (17:45→20:00)
[2018-07-22] MEDS: Digoxin 250 mcg (0.25 mg) Tab PO SCH (18:45)
[2018-07-23 06:50] LABS: BASO # 0.1 K/uL (0.0-0.2); BASO % 0.8 % (0.0-2.0); EOS # 0.7 K/uL (0.0-0.7); EOS % 10.1 % (0.0-4.0); LYMPH # 1.4 K/uL (1.0-4.3); LYMPH % 19.4 % (20.0-40.0); MEAN CELL VOLUME 78.6 fL (80.0-94.0); MEAN CORPUSCULAR HEMOGLOBIN 26.8 pg (27.0-31.0); MEAN CORPUSCULAR HGB CONC 34.1 g/dL (33.0-37.0); MEAN PLATELET VOLUME 8.7 fL (7.2-11.7); MONO # 0.5 K/uL (0.0-0.8); MONO % 6.9 % (0.0-10.0); NEUT # 4.4 K/uL (1.8-7.0); NEUT % 62.8 % (50.0-75.0); RBC 5.21 Mil/uL (4.40-5.90); RED CELL DISTRIBUTION WIDTH 17.2 % (11.5-14.5)
[2018-07-23 07:36] LABS: ALT/SGPT 25 U/L (21-72); AST/SGOT 18 U/L (17-59); BLOOD UREA NITROGEN 13 mg/dL (9-20); CALCIUM 8.6 mg/dl (8.6-10.4); GFR NON-AFRICAN AMERICAN > 60
[2018-07-23] MEDS: (Novolog) Insulin Aspart, Recombinant 100 u/ml 10 ml vial SC SCH ×3 (08:20→18:14)
--- NOTE | 2018-07-23 11:29 | CP.PCM.DIS ---
Provider - Provider Date of Admission: 07/21/18 17:19 Attending physician: Raymond Hernandez Jr, MD Time Spent in preparation of Discharge (in minutes): 35 Hospital Course - Lab Results Lab Results: Micro Results 07/21/18 20:30 Blood-Venous Blood Culture - Preliminary NO GROWTH AFTER 24 HOURS 07/21/18 20:00 Blood-Venous Blood Culture - Preliminary NO GROWTH AFTER 24 HOURS 07/21/18 20:27 Urine Urine Culture - Final No Growth (<1,000 CFU/ML) Most Recent Lab Values WBC 7.0 K/uL (4.8-10.8) 07/23/18 06:44 RBC 5.21 Mil/uL (4.40-5.90) 07/23/18 06:44 Hgb 14.0 g/dL (12.0-18.0) 07/23/18 06:44 Hct 41.0 % (35.0-51.0) 07/23/18 06:44 MCV 78.6 fL (80.0-94.0) L 07/23/18 06:44 MCH 26.8 pg (27.0-31.0) L 07/23/18 06:44 MCHC 34.1 g/dL (33.0-37.0) 07/23/18 06:44 RDW 17.2 % (11.5-14.5) H 07/23/18 06:44 Plt Count 128 K/uL (130-400) L 07/23/18 06:44 MPV 8.7 fL (7.2-11.7) 07/23/18 06:44 Neut % (Auto) 62.8 % (50.0-75.0) 07/23/18 06:44 Lymph % (Auto) 19.4 % (20.0-40.0) L 07/23/18 06:44 Ingham % (Auto) 6.9 % (0.0-10.0) 07/23/18 06:44 Eos % (Auto) 10.1 % (0.0-4.0) H 07/23/18 06:44 Baso % (Auto) 0.8 % (0.0-2.0) 07/23/18 06:44 Neut # (Auto) 4.4 K/uL (1.8-7.0) 07/23/18 06:44 Lymph # (Auto) 1.4 K/uL (1.0-4.3) 07/23/18 06:44 Ingham # (Auto) 0.5 K/uL (0.0-0.8) 07/23/18 06:44 Eos # (Auto) 0.7 K/uL (0.0-0.7) 07/23/18 06:44 Baso # (Auto) 0.1 K/uL (0.0-0.2) 07/23/18 06:44 Differential Comment 07/23/18 06:44 ESR 6 mm/hr (0-15) 07/21/18 20:34 PT 12.3 SECONDS (9.7-12.2) H 07/21/18 16:29 INR 1.1 07/21/18 16:29 APTT 31 SECONDS (21-34) 07/21/18 16:29 Sodium 134 mmol/L (132-148) 07/23/18 06:44 Potassium 4.1 mmol/L (3.6-5.2) 07/23/18 06:44 Chloride 101 mmol/L (98-107) 07/23/18 06:44 Carbon Dioxide 26 mmol/L (22-30) 07/23/18 06:44 Anion Gap 11 (10-20) 07/23/18 06:44 BUN 13 mg/dL (9-20) 07/23/18 06:44 Creatinine 1.1 mg/dL (0.8-1.5) 07/23/18 06:44 Est GFR ( Amer) > 60 07/23/18 06:44 Est GFR (Non-Af Amer) > 60 07/23/18 06:44 POC Glucose (mg/dL) 155 mg/dL (65-110) H 07/23/18 06:31 Random Glucose 160 mg/dL (75-110) H 07/23/18 06:44 Hemoglobin A1c 11.6 % (4.2-6.5) H D 07/21/18 16:29 Calcium 8.6 mg/dl (8.6-10.4) 07/23/18 06:44 Phosphorus 3.3 mg/dL (2.5-4.5) 07/23/18 06:44 Magnesium 1.7 mg/dL (1.6-2.3) 07/23/18 06:44 Total Bilirubin 0.9 mg/dL (0.2-1.3) 07/23/18 06:44 AST 18 U/L (17-59) 07/23/18 06:44 ALT 25 U/L (21-72) 07/23/18 06:44 Alkaline Phosphatase 59 U/L (38-126) 07/23/18 06:44 Troponin I 0.0260 ng/mL (0.00-0.120) 07/21/18 16:29 C-Reactive Protein 10.60 mg/L (0.0-9.9) H 07/21/18 20:34 Total Protein 6.0 g/dL (6.3-8.3) L 07/23/18 06:44 Albumin 3.0 g/dL (3.5-5.0) L 07/23/18 06:44 Globulin 3.0 gm/dL (2.2-3.9) 07/23/18 06:44 Albumin/Globulin Ratio 1.0 (1.0-2.1) 07/23/18 06:44 Triglycerides 228 mg/dL (0-149) H D 07/21/18 16:29 Cholesterol 137 mg/dL (0-199) 07/21/18 16:29 LDL Cholesterol Direct 77 mg/dL (0-129) 07/21/18 16:29 HDL Cholesterol 37 mg/dL (30-70) 07/21/18 16:29 Vitamin B12 404 pg/mL (239-931) 07/21/18 20:34 25-OH Vitamin D Total 15.6 NG/ML (30.0-100.0) L 07/21/18 20:34 Folate 17.5 ng/mL 07/21/18 20:34 TSH 3rd Generation 4.03 mIU/L (0.46-4.68) 07/21/18 16:29 Urine Color Yellow (YELLOW) 07/21/18 18:15 Urine Clarity Clear (Clear) 07/21/18 18:15 Urine pH 5.0 (5.0-8.0) 07/21/18 18:15 Ur Specific Lindley 1.031 (1.003-1.030) H 07/21/18 18:15 Urine Protein 2+ mg/dL (NEGATIVE) H 07/21/18 18:15 Urine Glucose (UA) 3+ mg/dL (Normal) H 07/21/18 18:15 Urine Ketones Negative mg/dL (NEGATIVE) 07/21/18 18:15 Urine Blood 2+ (NEGATIVE) H 07/21/18 18:15 Urine Nitrate Negative (NEGATIVE) 07/21/18 18:15 Urine Bilirubin Negative (NEGATIVE) 07/21/18 18:15 Urine Urobilinogen 2.0 mg/dL (0.2-1.0) 07/21/18 18:15 Ur Leukocyte Esterase Neg Pablo/uL (Negative) 07/21/18 18:15 Urine WBC (Auto) 6 /hpf (0-5) H 07/21/18 18:15 Urine RBC (Auto) 3 /hpf (0-3) 07/21/18 18:15 Ur Squamous Epith Cells < 1 /hpf (0-5) 07/21/18 18:15 Urine Bacteria Occ (<OCC) H 07/21/18 18:15 Digoxin 1.0 ng/mL (0.8-2.0) 07/21/18 17:22 Blood Type A POSITIVE 07/21/18 16:38 Antibody Screen Negative 07/21/18 16:38 - Hospital Course Hospital Course: On admission: HPI: Limited history due to patient's condition. HPI mostly obtained from patient's son Patient is a 72 year old with past medical history of Hypertension, Insulin Dependent Type 2 DM, Atrial Fibrillation on AC, and Hypothyroidism, who presents to the ED via ambulance. As son at bedside, patient was last seen normal at 10pm last night before bed with no acute issues or complaints. However, patient was noted by son around 2pm with slurred speech and incoherent speech while he was sitting in his wheel chair in the kitchen. Patient's son noted patient to be very confused and unable to speak in full sentences and tangential speech. As per son, patient will start with one word and the loses his train of thought or have difficulties with finding his words with addition symptoms of short term m lo loss. During the encounter, patient is unable to find his words in order to answer questions and unable to recall his , year and day. In addition, when asked about what brought in to the hospital in [place], patient responds by saying his name repeatedly and not answering questions appropriately. Upon review system, patient denies any symptoms of fever, chills, nausea, vomiting, chest pain, palpitations, shortness of breath, blurry vision, dizziness, recent sickness, nausea, vomiting and abdominal pain but does admits to frontal headache. As per son at bedside, patient did not have any recent illness. Hospital course: Pt was under the care of Dr. Hernandez from 07/21-07/23. Pt was admitted to telemetry. Head CT showed No intracranial hemorrhage. No evidence of acute infarct. Atrophy and Chronic white matter ischemic change. 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 Neurology, Dr. Tafoya, was consulted to rule out CVA. MRI brain showed chronic changes. MRA of the head and neck showed results as below. Carotid US showed no hemodynamically significant stenosis bilaterally. Pt's symptoms gradually resolved, and after reviewing patient's chart Dr. Garrido, neurology, ended the stroke work up. Dr. Garrido would like pt to have outpatient EEG. On discharge, pt has no complaints. Imaging: Head CT 07/21: No intracranial hemorrhage. No evidence of acute infarct. Atrophy and Chronic white matter ischemic change. 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 Head/Neck CTA 07/21: Extremely limited study due to injection/image timing mismatch with only faint opacification of the arterial circulation. Small plaque proximal right internal carotid artery with approximately 30 percent diameter stenosis. Mild calcified atherosclerotic plaque of both cavernous carotid siphons. There is slight asymmetry of the distal branches of the middle cerebral arteries with right-sided exhibited a paucity of vascularity compared to the left side. Clinical correlation recommended. No definitive evidence of large aneurysm nor vascular malformation. Brain MRI 07/22: No evidence of diffusion restriction to suggest acute or subacute infarct. [id number] atrophy and white matter changes suggestive of chronic microvascular ischemic disease Brain MRA 07/22: Limited motion degraded study.There is nonvisualization of the distal left vertebral artery possibly due to very small caliber. The left vertebral artery may in fact terminate in a left-sided capital PICA. Neck MRA 07/22: Limited motion degraded study. The common carotid arteries, carotid bifurcations and internal carotid arteries are patent. There is marked asymmetry of the vertebral arteries right-sided which is larger in caliber/more dominant than the left side. Left distal end vertebral artery may in fact terminate in a left-sided PICA. Remaining anterior circulation and distal branches are patent. Carotid doppler 07/22: No hemodynamically significant stenosis bilaterally. Echo (03/19/18): LV mildly dilated, mild concentric LV, EF- 55-60%, moderate aortic regurg, mitral regurg trace, aortic root mildly enlarged at 4.8 This is a summary of the hospital course, please see chart for full details. Discharge Exam - Head Exam Head Exam: ATRAUMATIC, NORMAL INSPECTION - Eye Exam Eye Exam: EOMI, Normal appearance, PERRL Pupil Exam: NORMAL ACCOMODATION - ENT Exam ENT Exam: Mucous Membranes Moist - Respiratory Exam Respiratory Exam: Clear to PA & Lateral, NORMAL BREATHING PATTERN, UNREMARKABLE - Cardiovascular Exam Cardiovascular Exam: REGULAR RHYTHM, +S1, +S2 - GI/Abdominal Exam GI & Abdominal Exam: Normal Bowel Sounds, Soft, Unremarkable. absent: Tenderness - Extremities Exam Additional comments: No calf tenderness, edema. Normal inspection. - Back Exam Back exam: NORMAL INSPECTION - Neurological Exam Neurological exam: Alert, CN II-XII Intact, Oriented x3 Additional comments: Sensation equal and intact in bilateral upper and lower dermatomes. Normal heel to moore. Normal finger to nose. 5/5 strength in bilateral upper and lower extremities. - Psychiatric Exam Psychiatric exam: Normal Affect, Normal Mood - Skin Skin Exam: Dry, Normal Color, Warm Discharge Plan - Discharge Medications Prescriptions: Ergocalciferol [Drisdol 50,000 Intl Units Cap] 1 cap PO Q7D #10 cap - Follow Up Plan Condition: FAIR Disposition: HOME/ ROUTINE Instructions: Heart Healthy Diet, Atrial Fibrillation (DC), Transient Ischemic Attack (DC), Altered Mental Status (DC), Ergocalciferol Additional Instructions: Patient is medically stable for discharge home as per Dr. Hernandez. 1. Patient should continue his previous home medications as prescribed. 2. Additionally, patient should start talking Vitamin D 50,000 iu by mouth once weekly for 10 weeks. 3. Patient should use the shower chair as explained by Dr. Hernandez. 4. Patient should follow up with outpatient physical therapy/occupational therapy three times a week for eight weeks as prescribed. 5. Patient instructed to follow up with Dr. Hernandez and Dr. Tafoya/Dr. Garrido, Neurology, within 1 week of discharge. 6. Should symptoms return, or worsen, please proceed to the nearest Emergency Department for further evaluation. Instructions explained to the patient, who understands and agrees with discharge plan. El paciente est mdicamente estable para el dominique hospitalaria segn el Dr. Hernandez. 1. El paciente debe continuar con corwin medicamentos caseros anteriores segn lo prescrito. 2. Adems, el paciente debe comenzar a hablar de vitamina D 50,000 iu por va oral osmar vez por semana grazyna 10 semanas. 3. El paciente debe usar la silla de ducha alex lo explic el Dr. Hernandez. 4. El paciente recibi instrucciones de seguimiento con el Dr. Hernandez y el Dr. Tafoya, Neurologa, dentro de la primera semana despus del dominique. 5. Si los sntomas regresan o empeoran, dirjase al [facility] ms cercano para osmar evaluacin adicional. Instrucciones explicadas al paciente, que entiende y est de acuerdo con el plan de dominique. Referrals: Lawson Tafoya MD [Staff Provider] - Raymond Hernandez Jr., MD [Medical Doctor] - Marychuy Garrido MD [Staff Provider] -
--- NOTE | 2018-07-23 12:49 | VASCLAB ---
Date of service: 07/22/2018 PROCEDURE: Carotid Duplex Exam. HISTORY: CODE STROKE COMPARISON: None available. TECHNIQUE: Grayscale and duplex Doppler evaluation of the cervical carotid and vertebral arteries were performed. The common carotid, carotid bifurcations and cervical Internal Carotid Artery (ICA) and proximal External Carotid Artery (ECA) were evaluated. The vertebral arteries were evaluated for gross patency and flow direction. Report prepared by Cordell Bravo, BS, RVT FINDINGS: RIGHT CAROTID ARTERIES: 1. Common Carotid Artery: No significant focal plaque formation of the right common carotid artery. Maximum Peak Systolic velocity: 59 cm/sec: End-diastolic velocity 17 cm/sec. 2. Carotid Bifurcation: plaque formation. Maximum Peak Systolic velocity: 49 cm/sec: End-diastolic velocity 12 cm/sec. 3. Internal Carotid Artery: Plaque description: 3.1. Proximal Segment: Peak systolic velocity 49 cm/sec: End-diastolic velocity 10 cm/sec - % stenosis 0-15% 3.2. Middle Segment: Peak systolic velocity 90 cm/sec: End-diastolic velocity 19 cm/sec - % stenosis 0-15% 3.3. Distal Segment: Peak systolic velocity 73 cm/sec: End-diastolic velocity 11 cm/sec - % stenosis 0-15% 4. External Carotid Artery: No significant focal plaque formation. Peak systolic velocity 86 cm/sec 5. ICA/CCA Ratio: 1.5 LEFT CAROTID ARTERIES: 1. Common Carotid Artery: No significant focal plaque formation of the left common carotid artery. Maximum Peak Systolic velocity: 75 cm/sec: End-diastolic velocity 17 cm/sec. 2. Carotid Bifurcation: plaque formation. Maximum Peak Systolic velocity: 74 cm/sec: End-diastolic velocity 7 cm/sec. 3. Internal Carotid Artery: Plaque description: 3.1. Proximal Segment: Peak systolic velocity 70 cm/sec: End-diastolic velocity 13 cm/sec - % stenosis 0-15% 3.2. Middle Segment: Peak systolic velocity 57 cm/sec: End-diastolic velocity 8 cm/sec - % stenosis 0-15% 3.3. Distal Segment: Peak systolic velocity 77 cm/sec: End-diastolic velocity 8 cm/sec - % stenosis 0-15% 4. External Carotid Artery: No significant focal plaque formation. Peak systolic velocity 92 cm/sec 5. ICA/CCA Ratio: 1.0 VERTEBRAL ARTERIES: 1. Right Vertebral Artery: The right vertebral artery flow direction is antegrade. 2. Left Vertebral Artery: The left vertebral artery flow direction is antegrade. OTHER FINDINGS: 1. Right Brachial Blood pressure: 150 mmHg. 2. Left Brachial Blood pressure: mmHg. 3. No atherosclerotic calcification present IMPRESSION: RIGHT: Duplex scan does not suggest hemodynamically significant stenosis of the right extracranial carotid arteries. LEFT: Duplex scan does not suggest hemodynamically significant stenosis of the left extracranial carotid arteries.
[2018-07-23 16:25] VITALS: BP 162/77; PULSE 70; TEMP 97.8; O2SAT 95
[2018-07-23] MEDS: Digoxin 250 mcg (0.25 mg) Tab PO SCH (18:14)
[2018-07-23 18:15] VITALS: PULSE 70
--- NOTE | 2018-07-24 17:53 | CARD ---
APPROVED REPORT Date of service: 07/21/2018 EKG Measurement Heart [id number] <Conclusion> Atrial fibrillation Low voltage QRS Inferior infarct, age undetermined Cannot rule out Anterior infarct, age undetermined Abnormal ECG
== END 2018-07-23 18:37 | disposition home or self-care (01) | DRG 68 ==
LOC: C.ER 16:05 → C.9E 17:19 → C.6T 07-22 14:11
PROVIDERS: ADMIT Internal Medicine; ATTEND Internal Medicine
DX: I66.02 Occlusion and stenosis of left middle cerebral artery (principal); I48.91 Unspecified atrial fibrillation; R47.01 Aphasia; R29.706 NIHSS score 6; I10 Essential (primary) hypertension; I08.0 Rheumatic disorders of both mitral and aortic valves; E03.9 Hypothyroidism, unspecified; E11.9 Type 2 diabetes mellitus without complications; Z79.4 Long term (current) use of insulin; Z79.01 Long term (current) use of anticoagulants; Z86.73 Personal history of transient ischemic attack (TIA), and cerebral infarction without residual deficits; Z96.643 Presence of artificial hip joint, bilateral

== ENCOUNTER 2018-09-28 17:12 | Emergency (ER) | payer OTHER, MEDICARE, MEDICAID ==
[2018-09-28 17:12] VITALS: PULSE 70; BMI 31.0
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
[2018-09-28 19:58] VITALS: BP 133/72; PULSE 67; RESP 18; TEMP 98.5
[2018-09-29 07:19] VITALS: O2SAT 96
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
== END 2018-09-28 19:58 | disposition home or self-care (01) ==
LOC: C.ER 17:12
DX: Z04.1 Encounter for examination and observation following transport accident (principal); I10 Essential (primary) hypertension; I48.91 Unspecified atrial fibrillation; Z86.73 Personal history of transient ischemic attack (TIA), and cerebral infarction without residual deficits